=== PATIENT | female | born 1940 | race American Indian/Alaskan Native ===

== ENCOUNTER 2017-09-07 10:08 | Outpatient (CLI) | payer MEDICARE ==
--- NOTE | 2017-09-09 10:04 | Mammography Report ---
BILATERAL MAMMOGRAM with CAD: HISTORY:Cancer screening. Comparison study is dated September 02, 2016. FINDINGS: The breasts are almost entirely fat (<25% glandular). No mass, distortion, suspicious calcification, or skin change is seen. IMPRESSION: Negative mammogram. There is no mammographic evidence of malignancy. RECOMMENDATION: Follow-up per ACS guidelines. BI-RADS CATEGORY: 1 = Negative ACR BI-RADS MAMMOGRAPHIC CODES: 0 = Needs additional imaging evaluation; 1 = Negative; 2 = Benign; 3 = Probably benign; 4 = Suspicious; 5 = Malignant; 6 = Known biopsy-proven malignancy COMMENT: 1. Dense breast tissue, i.e., adenosis, fibrocystic changes, etc., may obscure an underlying neoplasm. 2. Approximately 10% of cancers are not detected with mammography. 3. A negative mammography report should not delay biopsy if a clinically suspicious mass is present. COMMENT: Patient follow-up letters are generated in [employer].
== END 2017-09-07 10:09 | disposition home or self-care (01) ==
LOC: MAMMO 10:08
PROVIDERS: ATTEND Internal Medicine
DX: Z12.31 Encounter for screening mammogram for malignant neoplasm of breast (principal)
CPT/HCPCS: 77067; G0202

== ENCOUNTER 2018-07-11 16:47 | Inpatient (IN) | payer MEDICARE ==
[2018-07-11] MEDS ORDERED: ASPIRIN PO ONE (17:40)
--- NOTE | 2018-07-11 18:08 | Emergency Department Report ---
ED Chest Pain HPI - General Chief Complaint: Chest Pain Stated Complaint: CHEST PAIN Time Seen by Provider: 07/11/18 18:07 Source: patient, EMS Mode of arrival: Stretcher Limitations: No Limitations - History of Present Illness MD Complaint: chest pain -: This afternoon Onset: during rest Pain Location: substernal Pain Radiation: none Severity: moderate Severity scale (0 -10): 6 Quality: heaviness, dull Consistency: constant Improves With: nothing Worsens With: nothing Context: recent illness re: denies: nausea, vomting Other Symptoms: denies: cough, fever Treatments Prior to Arrival: none Aspirin use within the Past 7 Days: (1) Yes - Related Data On Oral Contraceptives: No Home Medications Medication Instructions Recorded Confirmed Last Taken Clopidogrel Bisulfate [Plavix] 75 mg PO DAILY 08/05/13 07/11/18 1 Day Ago ~10/07/16 ALBUTEROL NEB's [Proventil 0.083% 3 inhalation INHALATION PRN 10/31/13 07/11/18 1 Day Ago NEBS] ~10/07/16 Aspirin [Aspirin BABY CHEW TAB] 81 mg PO DAILY 10/31/13 07/11/18 1 Day Ago ~10/07/16 Triamter/Hctz 37.5-25 mg 1 each PO QDAY 10/31/13 07/11/18 1 Day Ago [Maxzide-25] ~10/07/16 Anoro Ellipta 62.5-25 Mcg INH 1 each INHALATION DAILY 03/03/16 07/11/18 03/02/16 Allopurinol [Zyloprim] 300 mg PO QDAY 07/11/18 07/11/18 Unknown ISOSORBIDE MONOnitrate [Imdur ER] 30 mg PO DAILY 07/11/18 07/11/18 Unknown Latanoprost 0.005% 1 drop OU QPM 07/11/18 07/11/18 Unknown Metoprolol Succinate [Toprol Xl] 25 mg PO DAILY 07/11/18 07/11/18 Unknown Pantoprazole [Protonix] 40 mg PO QDAY 07/11/18 07/11/18 Unknown Pravastatin [Pravachol] 40 mg PO DAILY 07/11/18 07/11/18 Unknown glipiZIDE [Glipizide] 5 mg PO BID 07/11/18 07/11/18 Unknown traMADol [Ultram] 50 mg PO Q6HR PRN 07/11/18 07/11/18 Unknown Allergies Allergy/AdvReac Type Severity Reaction Status Date / Time meperidine HCl [From Demerol] Allergy Hives Verified 07/11/18 17:40 flurbiprofen [From Ansaid] AdvReac Unknown Verified 07/11/18 17:40 Kmzynna-Iid-Cna Reductase AdvReac Unknown Verified 07/11/18 17:40 Inhibitor Heart Score - HEART Score History: Highly suspicious EKG: Non-specific Age: > 65 Risk factors: > 3 risk factors or hx of atherosclerotic disease Troponin: 1-3x normal limit HEART Score: 8 - Critical Actions Critical Actions: >7 pts:50-65% risk of adverse cardiac event. Early invasive measures ED Review of Systems ROS: Stated complaint: CHEST PAIN Other details as noted in HPI Comment: All other systems reviewed and negative Constitutional: malaise. denies: chills, fever Eyes: denies: eye pain, eye discharge ENT: denies: ear pain Respiratory: denies: cough, shortness of breath Cardiovascular: chest pain, palpitations, dyspnea on exertion. denies: edema Endocrine: no symptoms reported Gastrointestinal: denies: abdominal pain, nausea, vomiting, diarrhea Genitourinary: denies: urgency, dysuria, frequency Musculoskeletal: denies: back pain, joint swelling Skin: denies: rash, lesions Neurological: denies: headache, weakness, numbness Psychiatric: denies: anxiety, depression Hematological/Lymphatic: denies: easy bleeding, easy bruising ED Past Medical Hx - Past Medical History Previous Medical History?: Yes Hx Hypertension: Yes Hx CVA: Yes (x2) Hx Heart Attack/AMI: Yes Hx Congestive Heart Failure: Yes Hx Diabetes: Yes Hx GERD: Yes Hx Arthritis: Yes Hx Headaches / Migraines: Yes Hx Asthma: Yes Hx COPD: Yes Additional medical history: Headache, high cholesterol - Surgical History Past Surgical History?: Yes Hx Open Heart Surgery: Yes Additional Surgical History: tubal ligation, hysterectomy. - Social History Smoking Status: Former Smoker Substance Use Type: None - Medications Home Medications: Home Medications Medication Instructions Recorded Confirmed Last Taken Type Clopidogrel Bisulfate [Plavix] 75 mg PO DAILY 08/05/13 07/11/18 1 Day Ago History ~10/07/16 ALBUTEROL NEB's [Proventil 0.083% 3 inhalation INHALATION PRN 10/31/13 07/11/18 1 Day Ago History NEBS] ~10/07/16 Aspirin [Aspirin BABY CHEW TAB] 81 mg PO DAILY 10/31/13 07/11/18 1 Day Ago History ~10/07/16 Triamter/Hctz 37.5-25 mg 1 each PO QDAY 10/31/13 07/11/18 1 Day Ago History [Maxzide-25] ~10/07/16 Anoro Ellipta 62.5-25 Mcg INH 1 each INHALATION DAILY 03/03/16 07/11/18 History Allopurinol [Zyloprim] 300 mg PO QDAY 07/11/18 07/11/18 Unknown History ISOSORBIDE MONOnitrate [Imdur ER] 30 mg PO DAILY 07/11/18 07/11/18 Unknown History Latanoprost 0.005% 1 drop OU QPM 07/11/18 07/11/18 Unknown History Metoprolol Succinate [Toprol Xl] 25 mg PO DAILY 07/11/18 07/11/18 Unknown History Pantoprazole [Protonix] 40 mg PO QDAY 07/11/18 07/11/18 Unknown History Pravastatin [Pravachol] 40 mg PO DAILY 07/11/18 07/11/18 Unknown History glipiZIDE [Glipizide] 5 mg PO BID 07/11/18 07/11/18 Unknown History traMADol [Ultram] 50 mg PO Q6HR PRN 07/11/18 07/11/18 Unknown History ED Physical Exam - General Limitations: No Limitations General appearance: alert, in no apparent distress - Head Head exam: Present: atraumatic, normocephalic, normal inspection - Eye Eye exam: Present: normal appearance, PERRL, EOMI Pupils: Present: normal accommodation - ENT ENT exam: Present: normal exam, normal orophraynx, mucous membranes dry - Neck Neck exam: Present: normal inspection, full ROM. Absent: tenderness - Respiratory Respiratory exam: Present: normal lung sounds bilaterally. Absent: respiratory distress, wheezes, rales, rhonchi, stridor - Cardiovascular Cardiovascular Exam: Present: tachycardia, normal heart sounds - GI/Abdominal GI/Abdominal exam: Present: soft, normal bowel sounds. Absent: distended, tenderness, guarding, rebound - Extremities Exam Extremities exam: Present: normal inspection, full ROM, normal capillary refill. Absent: tenderness - Back Exam Back exam: Present: normal inspection, full ROM. Absent: tenderness - Neurological Exam Neurological exam: Present: alert, oriented X3, CN II-XII intact - Psychiatric Psychiatric exam: Present: normal affect, normal mood - Skin Skin exam: Present: warm, dry, intact, normal color. Absent: rash ED Course Vital Signs 07/11/18 07/11/18 07/11/18 17:31 17:33 18:01 Temperature 97.6 F Pulse Rate 147 H 148 H 89 Respiratory 17 18 13 Rate Blood Pressure 142/84 148/102 127/85 Blood Pressure [Left] O2 Sat by Pulse 95 99 91 Oximetry 07/11/18 07/11/18 07/11/18 18:24 18:30 19:01 Temperature Pulse Rate 80 143 H Respiratory 16 16 14 Rate Blood Pressure 111/78 151/85 Blood Pressure [Left] O2 Sat by Pulse 100 97 95 Oximetry 07/11/18 19:15 Temperature 97.7 F Pulse Rate 91 H Respiratory 18 Rate Blood Pressure Blood Pressure 151/85 [Left] O2 Sat by Pulse 100 Oximetry - Reevaluation(s) Reevaluation #1: 07/11/18 20:50 Consulted the station supervisor on-call Dr. Henry He was recently started on heparin drip after given heparin bolus and admission to the hospitalist. Reevaluation #2: 07/11/18 21:30 I discussed patient care with the hospitalist on-call Dr Recinos. We will admit patient to the hospital for further evaluation and management. CHANDLER score - Chandler Score Age > 65: (1) Yes Aspirin use within the Past 7 Days: (1) Yes 3 or more CAD Risk Factors: (1) Yes 2 or more Angina events in past 24 hrs: (0) No Known CAD with more than 50% Stenosis: (1) Yes Elevated Cardiac Markers: (1) Yes ST Deviation Greater than 0.5mm: (0) No CHANDLER Score: 5 ED Medical Decision Making - Lab Data Result diagrams: 07/11/18 18:18 07/11/18 18:18 - EKG Data -: EKG Interpreted by Me Rate: tachycardia (143) - EKG Data When compared to previous EKG there are: previous EKG unavailable Interpretation: nonspecific ST-T wave jeff, LVH 07/11/18 18:20 Atrial Fibrillation with RVR. No STEMI. Critical care attestation.: If time is entered above; I have spent that time in minutes in the direct care of this critically ill patient, excluding procedure time. ED Disposition Clinical Impression: Atrial fibrillation with RVR, NSTEMI (non-ST elevated myocardial infarction) Chest pain Qualifiers: Chest pain type: unspecified Qualified Code(s): R07.9 - Chest pain, unspecified Disposition: 09 OP ADMIT IP TO THIS HOSP Is pt being admited?: Yes Does the pt Need Aspirin: Yes Condition: Stable Instructions: Chest Pain (ED) Referrals: PRIMARY CARE, [Primary Care Provider] - 3-5 Days Time of Disposition: 20:52
[2018-07-11 18:44] LABS: Basophils # (Auto) 0.1 K/mm3 (0.0-0.1); Basophils % (Auto) 0.7 % (0.0-1.8); Eosinophils # (Auto) 0.1 K/mm3 (0.0-0.4); Eosinophils % (Auto) 0.9 % (0.0-4.3); Hemoglobin 13.6 gm/dl (10.1-14.3); Lymphocytes # (Auto) 2.9 K/mm3 (1.2-5.4); Mean Corpuscular HGB Conc 32 % (30-34); Mean Corpuscular Volume 74 fl (79-97); Monocytes # (Auto) 0.7 K/mm3 (0.0-0.8); Monocytes % (Auto) 8.8 % (0.0-7.3); Platelet Count 232 K/mm3 (140-440); Red Blood Count 5.79 M/mm3 (3.65-5.03); Red Cell Distribution Width 17.8 % (13.2-15.2)
[2018-07-11] MEDS ORDERED: NACL 0.9% 1000 ML 1,000 ML IV ONE (18:44)
[2018-07-11 18:45] LABS: Mean Corpuscular Hemoglobin 24 pg (28-32)
[2018-07-11 18:53] LABS: INR 0.87 (0.87-1.13)
[2018-07-11 18:54] LABS: Partial Thromboplastin Time 27.1 Sec. (24.2-36.6)
[2018-07-11 19:15] LABS: BUN/Creatinine Ratio 23; Blood Urea Nitrogen 21 mg/dL (7-17); Calcium 9.5 mg/dL (8.4-10.2); Hemolysis Index 38
[2018-07-11 19:17] LABS: Alanine Aminotransferase 17 units/L (7-56); Albumin 3.8 g/dL (3.9-5)
[2018-07-11 19:20] LABS: Bilirubin,Direct < 0.2 mg/dL (0-0.2)
[2018-07-11 19:47] LABS: Chol/HDL Ratio 2.22 %; HDL Cholesterol 57 mg/dL (40-59); LDL Cholesterol,Direct 53 mg/dL (50-130)
--- NOTE | 2018-07-11 20:36 | XRay Report ---
FINAL REPORT PROCEDURE: XR CHEST 1V AP TECHNIQUE: Chest radiograph anteroposterior view. CPT 90027 HISTORY: chest pain COMPARISON: No prior studies are available for comparison. FINDINGS: Limited study due to patient rotation to the right Heart: Mild cardiomegaly is noted. Mediastinum/Vessels: Sternal sutures and surgical clips are identified consistent with prior CABG. Superior mediastinum appears widened. Lungs/Pleural space: Normal. Bony thorax: No acute osseous abnormality. Life support devices: None. IMPRESSION: No acute pulmonary process Mild cardiomegaly Widening of the superior mediastinum is most likely secondary to tortuous vasculature and patient positioning. Comparison with any prior studies would be of help..
[2018-07-11] MEDS ORDERED: HEPARIN 10,000 UNITS/10 ML IV ONE (20:46)
[2018-07-11] MEDS ORDERED: HEPARIN/ 0.45% NACL-25,000 UNIT/500 ML 25,000 UNIT/500 ML BAG IV SCH (21:00)
[2018-07-11] MEDS ORDERED: ZOFRAN IV PRN (21:58)
[2018-07-11] MEDS ORDERED: NITROSTAT SL PRN (21:58)
[2018-07-11] MEDS ORDERED: MORPHINE IV PRN (21:58)
[2018-07-11] MEDS ORDERED: D50W (25GM) Syringe IV PRN (22:09)
[2018-07-11 22:11] LABS: Hematocrit 42.1 % (30.3-42.9); Hemoglobin 13.2 gm/dl (10.1-14.3)
[2018-07-11 22:14] LABS: INR 0.87 (0.87-1.13)
[2018-07-11 22:15] LABS: Partial Thromboplastin Time 26.8 Sec. (24.2-36.6)
[2018-07-11] MEDS ORDERED: NITRO-BID 2% TP ONE (22:52)
[2018-07-11] MEDS: NITRO-BID 2% TP SCH (22:59)
--- NOTE | 2018-07-11 23:02 | History and Physical Report ---
CHIEF COMPLAINT: Chest pain. HISTORY OF PRESENT ILLNESS: The patient is a 77-year-old female who has been having heaviness and pressure in the retrosternal area of the chest going on for some hours prior to presentation. Pain does not radiate and pain is associated with diaphoresis and headache. There is no history of nausea and vomiting. No history of fever, chills, or cough and no history of shortness of breath and pain was relieved with pain medications and nitroglycerin. PAST MEDICAL HISTORY: Pertinent for coronary artery disease. Also, the patient's past medical history involves hypertension, cerebrovascular accident, congestive heart failure, diabetes mellitus, gastroesophageal reflux disease, arthritis, migraine headache, asthma, COPD, high cholesterol, and headaches. PAST SURGICAL HISTORY: Pertinent for coronary artery bypass graft, hysterectomy, tubal ligation. FAMILY HISTORY: Family history is noncontributory. SOCIAL HISTORY: The patient is a former cigarette smoker, does not smoke anymore and does not drink alcohol or use illicit drugs. MEDICATIONS: The patient is on the following medications: Plavix 75 mg by mouth daily; albuterol nebulizer by inhalation as needed for shortness of breath, frequency unknown; aspirin 81 mg daily; Maxzide 25 one by mouth daily; Anoro Ellipta 62.5/25 mcg by inhalation daily; allopurinol 300 mg by mouth daily; isosorbide mononitrate, Imdur 30 mg by mouth daily; latanoprost 0.005% to both eyes 1 drop every night; metoprolol succinate 25 mg by mouth daily; pantoprazole 40 mg by mouth daily; Pravachol 40 mg by mouth daily; glipizide 5 mg by mouth twice daily; Ultram 50 mg by mouth every 6 hours as needed for pain. ALLERGIES: THE PATIENT IS ALLERGIC TO MEPERIDINE, HYDROCHLORIDE, FLURBIPROFEN, STATIN MEDICATION. REVIEW OF SYSTEMS: CONSTITUTIONAL: There is no fever, no chills. Diaphoresis present. HEENT: Headache present. No sore throat. CARDIOVASCULAR SYSTEM: Chest pain is noted. No orthopnea. RESPIRATORY SYSTEM: There is no shortness of breath or cough. GASTROINTESTINAL SYSTEM: There is no nausea, no vomiting, no abdominal pain, diarrhea, or constipation. NEUROLOGICAL SYSTEM: There is no numbness, no dizziness, no altered mental status. MUSCULOSKELETAL SYSTEM: There is no joint pain or swelling. DERMATOLOGICAL SYSTEM: There is no skin rash or itching. GENITOURINARY SYSTEM: There is no dysuria, hematuria, or flank pain. Rest of system review is normal. PHYSICAL EXAMINATION: GENERAL: At the time of exam, the patient was found to be alert, oriented x 3 and not in acute distress. VITAL SIGNS: As on the time of presentation shows temperature of 97.6 degrees Fahrenheit, pulse of 148, respirations 18, blood pressure 148/102, O2 sat of 99% on room air. HEENT: Shows pupils to be equal, round, reactive to light and accommodating. Extraocular muscles are intact. NECK: Neck is supple with no JVD or carotid bruit. CARDIOVASCULAR: Showed normal first and second heart sounds which are regular with no gallops or murmurs or rubbing. Emergency Room physician reported irregularly irregular rate with elevated pause before. RESPIRATORY: Showed good air entry on both sides of the lungs with no abnormal breath sounds. GASTROINTESTINAL SYSTEM: Show abdomen to be full, soft, nontender with no organomegaly or rigidity. NEUROLOGIC: Shows no focal deficit. MUSCULOSKELETAL: Show no joint swelling or tenderness. DERMATOLOGICAL: Show no skin rash. GENITOURINARY: Showing no costovertebral angle tenderness. PERTINENT LABORATORY AND IMAGING STUDIES: The patient had chest done that shows no active pulmonary process. LABORATORY RESULTS: The patient has CBC done with normal white count, normal hemoglobin, elevated hematocrit of 43, low MCV of 74. Coagulation studies were unremarkable. Chemistry shows elevated BUN of 21 with elevated troponin level of 0.049. Brain natriuretic peptide level was normal. The rest of chemistry shows slight decrease in albumin level of 3.8. DIAGNOSIS: [id number] myocardial infarction. PLAN: The patient will be admitted to telemetry and will have cardiac enzymes checked q. 6 hours x 2 more levels. Also, the patient will remain n.p.o. until seen by the field marketing coordinator and patient will have Cardiology consult with Dr. Henry who was contacted by the Emergency Room physician already. Patient will be on aspirin 325 mg by mouth daily and will continue IV heparin per Cardiology protocol for NSTEMI, started in the Emergency Room. The patient will be on nitro paste 1/2 inch to anterior chest wall q. 6 hours. Will be on p.r.n. nitroglycerin sublingual for breakthrough chest pain. PLAN OF CARE: 1. The patient will be on IV morphine 2 mg every 5 minutes as needed for pain and will be on IV Zofran 4 mg every 6 hours as needed for nausea and vomiting. 2. The patient will be on Tylenol by mouth 650 mg every 4 hours for fever and headache. 3. The patient will be on oxygen by nasal cannula at 2 liter per minute. 4. The patient will remain n.p.o. and will be on her home medication as shown in the medication reconciliation section. 5. The patient will be on Accu-Chek q. 6 hours followed by sliding scale coverage every 6 hours using low-dose sliding scale with coverage using regular insulin. JOB# [id number] OCN/NTS MTDD
[2018-07-12] MEDS: HumuLIN R SUB-Q SCH ×4 (00:59→19:57)
[2018-07-12] MEDS: TYLENOL PO PRN ×2 (06:10→22:50)
[2018-07-12] MEDS: NITRO-BID 2% TP SCH ×4 (06:11→19:58)
[2018-07-12 06:20] LABS: Creatine Kinase MB 16.2 ng/mL (0.0-4.0)
[2018-07-12] MEDS ORDERED: ASPIRIN PO SCH (10:00)
--- NOTE | 2018-07-12 12:47 | Consultation ---
History of Present Illness Consult date: 07/12/18 Consult reason: elevated troponin History of present illness: This is a 77yr old woman known to [employer]. She has a history of coronary artery disease with 3 vessel bypass grafting done 10 years ago. A cardiac catheterization in 2010 and again in 2012 that revealed 3 patent bypass grafts. Ejection fraction 60%. Her latest cardiac evaluation was a persantine thallium stress test late 2015 that reports no ischemia. Co-morbidities includes Hypertension, GERD, COPD, Diabetes and Obesity. Patient presented with chest pain and palpitations, found to be in rapid atrial fibrillation. She has since reverted to a normal sinus rhythm. A repeat ECG shows a sinus rhythm, no acute ischemic changes. Laboratory studies shows cardiac enzymes elevated CKMB of 16.2 with a relative index of 15.8. Troponin 0.269. TSH was not measured. Cardiology consultation requested. Medications and Allergies Allergies Allergy/AdvReac Type Severity Reaction Status Date / Time meperidine HCl [From Demerol] Allergy Hives Verified 07/11/18 17:40 flurbiprofen [From Ansaid] AdvReac Unknown Verified 07/11/18 17:40 Nxdemdc-Ugr-Phg Reductase AdvReac Unknown Verified 07/11/18 17:40 Inhibitor Home Medications Medication Instructions Recorded Confirmed Last Taken Type Clopidogrel Bisulfate [Plavix] 75 mg PO DAILY 08/05/13 07/11/18 1 Day Ago History ~10/07/16 ALBUTEROL NEB's [Proventil 0.083% 3 inhalation INHALATION PRN 10/31/13 07/11/18 1 Day Ago History NEBS] ~10/07/16 Aspirin [Aspirin BABY CHEW TAB] 81 mg PO DAILY 10/31/13 07/11/18 1 Day Ago History ~10/07/16 Triamter/Hctz 37.5-25 mg 1 each PO QDAY 10/31/13 07/11/18 1 Day Ago History [Maxzide-25] ~10/07/16 Anoro Ellipta 62.5-25 Mcg INH 1 each INHALATION DAILY 03/03/16 07/11/18 History Allopurinol [Zyloprim] 300 mg PO QDAY 07/11/18 07/11/18 Unknown History ISOSORBIDE MONOnitrate [Imdur ER] 30 mg PO DAILY 07/11/18 07/11/18 Unknown History Latanoprost 0.005% 1 drop OU QPM 07/11/18 07/11/18 Unknown History Metoprolol Succinate [Toprol Xl] 25 mg PO DAILY 07/11/18 07/11/18 Unknown History Pantoprazole [Protonix] 40 mg PO QDAY 07/11/18 07/11/18 Unknown History Pravastatin [Pravachol] 40 mg PO DAILY 07/11/18 07/11/18 Unknown History glipiZIDE [Glipizide] 5 mg PO BID 07/11/18 07/11/18 Unknown History traMADol [Ultram] 50 mg PO Q6HR PRN 07/11/18 07/11/18 Unknown History Active Meds: Active Medications Acetaminophen (Tylenol) 650 mg PO Q4H PRN PRN Reason: Fever >101 Last Admin: 07/12/18 06:10 Dose: 650 mg Aspirin (Aspirin) 325 mg PO QDAY [facility] Last Admin: 07/12/18 11:56 Dose: 325 mg Dextrose (D50w (25gm) Syringe) 50 ml IV PRN PRN PRN Reason: Hypoglycemia Heparin Sodium/Sodium Chloride (Heparin/ 0.45% Nacl-25,000 Unit/500 Ml) 25,000 unit in 500 mls @ 20 mls/hr IV TITRATE ALFRED; Protocol Last Titration: 07/12/18 06:50 Dose: 900 units/hr, 18 mls/hr Insulin Human Regular (Humulin R) 0 units SUB-Q Q6HR ALFRED; Protocol Last Admin: 07/12/18 06:11 Dose: Not Given Latanoprost (Latanoprost 0.005%) 1 drops OU QHS [facility]FR[facility] Morphine Sulfate (Morphine) 2 mg IV Q5MIN PRN PRN Reason: Chest Pain Nitroglycerin (Nitrostat) 0.4 mg SL .Q5MIN PRN PRN Reason: Chest Pain Nitroglycerin (Nitro-Bid 2%) 0.5 inch TP QIDNTG [facility]; Protocol Last Admin: 07/12/18 11:56 Dose: 0.5 inch Ondansetron HCl (Zofran) 4 mg IV Q6H PRN PRN Reason: Nausea And Vomiting Physical Examination Vital Signs Pulse Resp BP Pulse Ox 147 H 17 142/84 95 07/11/18 17:31 07/11/18 17:31 07/11/18 17:31 08/13/18 17:31 General appearance: no acute distress HEENT: Positive: PERRL Cardiac: Positive: Reg Rate and Rhythm Results 07/11/18 21:33 07/11/18 18:18 Cardiac Enzymes 07/11/18 07/12/18 Range/Units 18:18 04:48 AST 32 (5-40) units/L CK-MB (CK-2) 16.2 H (0.0-4.0) ng/mL Coagulation 07/11/18 07/11/18 Range/Units 18:18 21:33 PT 12.2 12.3 (12.2-14.9) Sec. INR 0.87 0.87 (0.87-1.13) APTT 27.1 26.8 (24.2-36.6) Sec. Lipids 07/11/18 Range/Units 18:18 Triglycerides 182 H (2-149) mg/dL Cholesterol 127 (50-199) mg/dL HDL Cholesterol 57 (40-59) mg/dL Cholesterol/HDL Ratio 2.22 % CBC 07/11/18 07/11/18 Range/Units 18:18 21:33 WBC 7.7 (4.5-11.0) K/mm3 RBC 5.79 H (3.65-5.03) M/mm3 Hgb 13.6 13.2 (10.1-14.3) gm/dl Hct 43.0 H 42.1 (30.3-42.9) % Plt Count 232 231 (140-440) K/mm3 Lymph # 2.9 (1.2-5.4) K/mm3 [place] # 0.7 (0.0-0.8) K/mm3 Eos # 0.1 (0.0-0.4) K/mm3 Baso # 0.1 (0.0-0.1) K/mm3 Comprehensive Metabolic Panel 07/11/18 07/11/18 Range/Units 18:18 18:18 Sodium 138 (137-145) mmol/L Potassium 3.8 (3.6-5.0) mmol/L Chloride 98.5 (98-107) mmol/L Carbon Dioxide 23 (22-30) mmol/L BUN 21 H (7-17) mg/dL Creatinine 0.9 (0.7-1.2) mg/dL Glucose 100 (65-100) mg/dL Calcium 9.5 (8.4-10.2) mg/dL Direct Bilirubin < 0.2 (0-0.2) mg/dL AST 32 (5-40) units/L ALT 17 (7-56) units/L Alkaline Phosphatase 33 L (35-129) units/L Total Protein 7.1 (6.3-8.2) g/dL Albumin 3.8 L (3.9-5) g/dL Assessment and Plan Atrial fibrillation, new onset currently is sinus rhythm Hx of CAD with 3 vessel CABG Hypertension GERD Diabetes COPD Elevated troponin
[2018-07-12] MEDS: ELIQUIS PO SCH ×2 (16:09→22:47)
[2018-07-12] MEDS: CORDARONE PO SCH ×2 (16:09→22:47)
[2018-07-12] MEDS: LOPRESSOR PO SCH ×2 (16:09→22:47)
--- NOTE | 2018-07-12 16:52 | Progress Note ---
Assessment and Plan Assessment and plan: 77 year old -Togolese female with past medical history significant for CAD status post CABG, CVA, dementia presented to the emergency department with complaints of chest pain. In the emergency department she was in A. fib with RVR which spontaneously reverted to sinus rhythm In the ED patient had elevated troponin level management was started for NSTEMI - Cardiology is consulted and recommended to start her on beta abdirashid, amiodarone and Eliquis Diabetes mellitus type 2 - On a sliding scale insulin, Accu-Chek, ADA diet History of CAD status post CABG History of CVA Morbid obesity - Patient is consulted about exercise, diet, and weight loss Patient has dementia and lives by herself; she refused placement on her previous admission. Currently she is not willing to go to subacute rehabilitation. Disposition - Continue inpatient care History Interval history: Patient was seen and evaluated this morning, patient didn't have any chest pain. Patient asked to go home. Hospitalist Physical - Physical exam Narrative exam: Not in cardiopulmonary distress. The patient is morbidly obese. Vital signs as documented. Head exam is unremarkable. No scleral icterus . Neck is without jugular venous distension, thyromegaly, or carotid bruits. Lungs are clear to auscultation. Cardiac exam reveals regular rate and Rhythm. Abdominal exam reveals normal bowel sounds, no masses, no organomegaly and no aortic enlargement. Extremities are nonedematous and both femoral and pedal pulses are normal. BACTERIOLOGY RESEARCH ASSISTANT: Alert and oriented 3. No focal weakness. - Constitutional Vitals: Temp Pulse Resp BP Pulse Ox 98.6 F 61 22 148/76 97 07/12/18 08:03 07/12/18 08:03 07/12/18 08:03 07/12/18 08:03 07/12/18 09:59 General appearance: Present: no acute distress Results - Labs CBC & Chem 7: 07/11/18 21:33 07/11/18 18:18 Labs: Laboratory Last Values WBC 7.7 K/mm3 (4.5-11.0) 07/11/18 18:18 RBC 5.79 M/mm3 (3.65-5.03) H 07/11/18 18:18 Hgb 13.2 gm/dl (10.1-14.3) 07/11/18 21:33 Hct 42.1 % (30.3-42.9) 07/11/18 21:33 MCV 74 fl (79-97) L 07/11/18 18:18 MCH 24 pg (28-32) L 07/11/18 18:18 MCHC 32 % (30-34) 07/11/18 18:18 RDW 17.8 % (13.2-15.2) H 07/11/18 18:18 Plt Count 231 K/mm3 (140-440) 07/11/18 21:33 Lymph % (Auto) 38.0 % (13.4-35.0) H 07/11/18 18:18 [place] % (Auto) 8.8 % (0.0-7.3) H 07/11/18 18:18 Eos % (Auto) 0.9 % (0.0-4.3) 07/11/18 18:18 Baso % (Auto) 0.7 % (0.0-1.8) 07/11/18 18:18 Lymph # 2.9 K/mm3 (1.2-5.4) 07/11/18 18:18 [place] # 0.7 K/mm3 (0.0-0.8) 07/11/18 18:18 Eos # 0.1 K/mm3 (0.0-0.4) 07/11/18 18:18 Baso # 0.1 K/mm3 (0.0-0.1) 07/11/18 18:18 Seg Neutrophils % 51.6 % (40.0-70.0) 07/11/18 18:18 Seg Neutrophils # 3.9 K/mm3 (1.8-7.7) 07/11/18 18:18 PT 12.3 Sec. (12.2-14.9) 07/11/18 21:33 INR 0.87 (0.87-1.13) 07/11/18 21:33 APTT 26.8 Sec. (24.2-36.6) 07/11/18 21:33 D-Dimer 175.54 ng/mlDDU (0-234) 07/11/18 18:18 Heparin Anti-Xa Level 0.57 U.I./ml (0.3-0.7) 07/12/18 15:28 Sodium 138 mmol/L (137-145) 08/13/18 18:18 Potassium 3.8 mmol/L (3.6-5.0) 07/11/18 18:18 Chloride 98.5 mmol/L (98-107) 07/11/18 18:18 Carbon Dioxide 23 mmol/L (22-30) 07/11/18 18:18 Anion Gap 20 mmol/L 07/11/18 18:18 BUN 21 mg/dL (7-17) H 07/11/18 18:18 Creatinine 0.9 mg/dL (0.7-1.2) 07/11/18 18:18 Estimated GFR > 60 ml/min 07/11/18 18:18 BUN/Creatinine Ratio 23 % 07/11/18 18:18 Glucose 100 mg/dL (65-100) 07/11/18 18:18 POC Glucose 97 (70-105) 07/12/18 11:45 Calcium 9.5 mg/dL (8.4-10.2) 07/11/18 18:18 Magnesium 2.00 mg/dL (1.7-2.3) 07/11/18 18:28 Total Bilirubin 0.20 mg/dL (0.1-1.2) 07/11/18 18:18 Direct Bilirubin < 0.2 mg/dL (0-0.2) 07/11/18 18:18 AST 32 units/L (5-40) 07/11/18 18:18 ALT 17 units/L (7-56) 07/11/18 18:18 Alkaline Phosphatase 33 units/L (35-129) L 07/11/18 18:18 Total Creatine Kinase 102 units/L (30-135) 07/12/18 04:48 CK-MB (CK-2) 16.2 ng/mL (0.0-4.0) H 07/12/18 04:48 CK-MB (CK-2) Rel Index 15.8 (0-4) H 07/12/18 04:48 Troponin T 0.269 ng/mL (0.00-0.029) H* D 07/12/18 04:48 NT-Pro-B Natriuret Pep 730.5 pg/mL (0-900) 07/11/18 18:28 Total Protein 7.1 g/dL (6.3-8.2) 07/11/18 18:18 Albumin 3.8 g/dL (3.9-5) L 07/11/18 18:18 Albumin/Globulin Ratio 1.2 % 07/11/18 18:18 Triglycerides 182 mg/dL (2-149) H 07/11/18 18:18 Cholesterol 127 mg/dL (50-199) 07/11/18 18:18 LDL Cholesterol Direct 53 mg/dL (50-130) 07/11/18 18:18 HDL Cholesterol 57 mg/dL (40-59) 07/11/18 18:18 Cholesterol/HDL Ratio 2.22 % 07/11/18 18:18 TSH 1.530 mlU/mL (0.270-4.200) 07/12/18 13:44
[2018-07-12] MEDS ORDERED: LATANOPROST 0.005% OU SCH (22:00)
[2018-07-13] MEDS: LOPRESSOR PO SCH (04:59)
[2018-07-13] MEDS: NITRO-BID 2% TP SCH ×2 (05:55→10:45)
[2018-07-13] MEDS ORDERED: LOPRESSOR PO SCH ×2 (06:00→11:00)
[2018-07-13] MEDS ORDERED: PROVENTIL IH SCH (06:05)
[2018-07-13] MEDS: HumuLIN R SUB-Q SCH ×2 (06:08)
[2018-07-13 06:12] LABS: Hematocrit 42.9 % (30.3-42.9); Hemoglobin 13.2 gm/dl (10.1-14.3)
[2018-07-13] MEDS ORDERED: PROVENTIL IH ONE (06:12)
[2018-07-13 06:36] LABS: BUN/Creatinine Ratio 20; Blood Urea Nitrogen 18 mg/dL (7-17); Calcium 9.2 mg/dL (8.4-10.2); Hemolysis Index 13
[2018-07-13 09:33] VITALS: BP 136/75
[2018-07-13] MEDS: DUONEB *Not for PRN Use IH SCH ×2 (09:33→13:20)
--- NOTE | 2018-07-13 10:01 | Progress Note ---
Assessment and Plan New onset Atrial fibrillation, paroxysmal currently is sinus rhythm; on amiodarone and metoprolol for suppression normal TSH initiated on eliquis for oral anticoagulation Hx of CAD with 3 vessel CABG Hypertension GERD Diabetes COPD Elevated troponin Recommendations: Continue beta blockers and amiodarone for atrial fibrillation suppression. Oral anticoagulation with Eliquis therapy and low dose aspirin. Stable cardiac romero for discharge. Patient will f/u with [facility] as scheduled at 1050a.. Subjective Date of service: 07/13/18 Interval history: Patient reports she is feeling better. She denies chest pain, shortness of breath and palpitations. Stable sinus rhythm on telemetry. Objective Vital Signs Temp Pulse Pulse Resp Resp BP Pulse Ox 07/13/18 09:40 82 16 07/13/18 09:35 99 07/13/18 09:30 82 16 07/13/18 08:15 97.3 F L 63 20 136/75 98 07/13/18 06:34 55 L 20 07/13/18 06:15 58 L 20 07/13/18 05:55 58 L 07/13/18 04:21 97.0 F L 51 L 17 96/53 98 07/12/18 23:58 98.2 F 55 L 17 123/47 99 07/12/18 21:10 99 07/12/18 19:40 63 07/12/18 19:31 98.3 F 51 L 17 145/63 98 07/12/18 19:29 64 98 07/12/18 16:47 98.3 F 60 20 149/94 99 07/12/18 12:34 97.9 F 62 20 151/74 99 07/12/18 09:59 97 - Physical Examination General: No Apparent Distress HEENT: Positive: PERRL Cardiac: Positive: Reg Rate and Rhythm Neuro: Positive: Grossly Intact Extremities: Absent: edema - Labs and Meds CBC 07/13/18 Range/Units 05:20 Hgb 13.2 (10.1-14.3) gm/dl Hct 42.9 (30.3-42.9) % Plt Count 215 (140-440) K/mm3 Comprehensive Metabolic Panel 07/13/18 Range/Units 05:20 Sodium 141 (137-145) mmol/L Potassium 4.1 (3.6-5.0) mmol/L Chloride 99.0 (98-107) mmol/L Carbon Dioxide 30 D (22-30) mmol/L BUN 18 H (7-17) mg/dL Creatinine 0.9 (0.7-1.2) mg/dL Glucose 118 H (65-100) mg/dL Calcium 9.2 (8.4-10.2) mg/dL
[2018-07-13] MEDS: ELIQUIS PO SCH (10:42)
[2018-07-13] MEDS: TYLENOL PO PRN (10:50)
[2018-07-13] MEDS ORDERED: CORDARONE PO SCH (11:00)
[2018-07-13] MEDS ORDERED: HALFPRIN EC PO SCH (11:00)
--- NOTE | 2018-07-13 11:01 | Discharge Summary ---
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 In the emergency department patient was in A. fib with RVR which spontaneously reverted to sinus rhythm In the ED patient had elevated troponin level management was started for NSTEMI - Cardiology was consulted and recommended to start her on beta abdirashid, amiodarone and Eliquis Diabetes mellitus type 2 - On a sliding scale insulin, Accu-Chek, ADA diet History of CAD status post CABG History of CVA Morbid obesity - Patient is consulted about exercise, diet, and weight loss Patient has dementia and lives by herself; she refused placement on her previous admission. Currently she is not willing to go to subacute rehabilitation. Patient didn't have any chest pain and was hemodynamically stable. Patient cleared by cardiology for discharge. Disposition: DC/TX-06 HOME UNDER HOME [facility] Time spent for discharge: 34 minutes - Discharge Diagnoses (1) Atrial fibrillation with RVR Status: Acute (2) Chest pain Status: Acute Qualifiers: Chest pain type: unspecified Qualified Code(s): R07.9 - Chest pain, unspecified (3) NSTEMI (non-ST elevated myocardial infarction) Status: Acute (4) CAD (coronary artery disease) Status: Chronic Qualifiers: Coronary Disease-Associated Artery/Lesion type: council artery (5) Diabetes Status: Chronic (6) Hypertension Status: Chronic (7) Morbid obesity Status: Chronic Core Measure Documentation - Palliative Care Palliative Care/ Comfort Measures: Not Applicable - Core Measures Any of the following diagnoses?: acute IA - Acute IA Discharge Requirements Aspirin at discharge: Yes BLAYNE/ARB for LVSD if EF <40%: Yes Beta abdirashid at discharge: Yes Statin for LDL = or >100 mg/dl on DC: Yes Reason for no statin on DC: Allergy or sensitivity Exam - Physical Exam Narrative exam: Not in cardiopulmonary distress. The patient is morbidly obese. Vital signs as documented. Head exam is unremarkable. No scleral icterus . Neck is without jugular venous distension, thyromegaly, or carotid bruits. Lungs are clear to auscultation. Cardiac exam reveals regular rate and Rhythm. Abdominal exam reveals normal bowel sounds, no masses, no organomegaly and no aortic enlargement. Extremities are nonedematous and both femoral and pedal pulses are normal. SECURITY TEAM LEAD: Alert and oriented 3. No focal weakness. - Constitutional Vitals: Temp Pulse Resp BP Pulse Ox 97.3 F L 82 16 136/75 99 07/13/18 08:15 07/13/18 09:40 07/13/18 09:40 07/13/18 08:15 07/13/18 09:35 Plan Diet: low cholesterol, low salt Follow up with: PRIMARY CARE, [Primary Care Provider] - 3-5 Days DAVID MALONE JR, MD [Staff Physician] - 7 Days SHANA DUPONT MD [Staff Physician] - 10 Days Prescriptions: Amiodarone [Cordarone 200 MG TAB] 200 mg PO BID #60 tablet Apixaban [Eliquis] 5 mg PO Q12HR #30 tablet Lisinopril [Zestril TAB] 5 mg PO QDAY #30 tablet Metoprolol [Lopressor TAB] 50 mg PO Q12H #60 tablet
== END 2018-07-13 15:30 | disposition home health service (06) | DRG 281 ==
LOC: ED 16:47 → 4A 21:52
PROVIDERS: ADMIT Internal Medicine; ATTEND Internal Medicine
DX: I21.4 Non-ST elevation (NSTEMI) myocardial infarction (principal); Z68.41 Body mass index [BMI] 40.0-44.9, adult; I25.10 Atherosclerotic heart disease of native coronary artery without angina pectoris; E11.9 Type 2 diabetes mellitus without complications; I48.0 Paroxysmal atrial fibrillation; K21.9 Gastro-esophageal reflux disease without esophagitis; J44.9 Chronic obstructive pulmonary disease, unspecified; F03.90 Unspecified dementia, unspecified severity, without behavioral disturbance, psychotic disturbance, mood disturbance, and anxiety; I11.0 Hypertensive heart disease with heart failure; I50.9 Heart failure, unspecified; M19.90 Unspecified osteoarthritis, unspecified site; G43.909 Migraine, unspecified, not intractable, without status migrainosus; E66.01 Morbid (severe) obesity due to excess calories; Z71.3 Dietary counseling and surveillance; Z95.1 Presence of aortocoronary bypass graft; Z86.73 Personal history of transient ischemic attack (TIA), and cerebral infarction without residual deficits; Z88.5 Allergy status to narcotic agent; Z79.899 Other long term (current) drug therapy; I25.2 Old myocardial infarction; Z90.710 Acquired absence of both cervix and uterus; Z98.51 Tubal ligation status; Z87.891 Personal history of nicotine dependence
CPT/HCPCS: 36415; 71045; 80048; 80061; 80074; 82550; 82553; 82962; 83735; 83880; 84443; 84484; 85014; 85018; 85025; 85049; 85379; 85520; 85610; 85730; 93005; 93010; 94640; 94760; 96374; J1644; J7030

== ENCOUNTER 2018-09-20 11:06 | Outpatient (CLI) | payer MEDICARE ==
--- NOTE | 2018-09-20 15:39 | Mammography Report ---
BILATERAL DIGITAL SCREENING MAMMOGRAM with CAD: 09/20/18 11:06:00 CLINICAL: Routine screening. COMPARISON:09/07/17 FINDINGS: The breasts are almost entirely fatty. No mass, architectural distortion or suspicious calcifications. IMPRESSION: No mammographic evidence of malignancy. BI-RADS CATEGORY: 1 - - Negative RECOMMENDATION: Routine mammographic screening in one year. COMMENT: Patient follow-up letters are generated by our [employer] application.
== END 2018-09-20 11:07 | disposition home or self-care (01) ==
LOC: MAMMO 11:06
PROVIDERS: ATTEND Internal Medicine
DX: Z12.31 Encounter for screening mammogram for malignant neoplasm of breast (principal); I10 Essential (primary) hypertension; E11.9 Type 2 diabetes mellitus without complications; J45.909 Unspecified asthma, uncomplicated; I25.10 Atherosclerotic heart disease of native coronary artery without angina pectoris; E78.5 Hyperlipidemia, unspecified; E66.01 Morbid (severe) obesity due to excess calories; I48.91 Unspecified atrial fibrillation
CPT/HCPCS: 77067

== ENCOUNTER 2019-06-28 07:47 | Inpatient (IN) | payer MEDICARE ==
--- NOTE | 2019-06-28 08:13 | Emergency Department Report ---
ED General Adult HPI - General Chief complaint: Headache Stated complaint: HEADACHE Time Seen by Provider: 06/28/19 08:03 Source: patient, family, EMS (ems notes not available at time of chart dictation), RN notes reviewed, old records reviewed Mode of arrival: Stretcher Limitations: No Limitations - History of Present Illness Initial comments: Primary care Dr.: Dr. Rico Cardiology: Dr. Cano Past medical history: Obesity, atrial fibrillation, presumed paroxysmal, currently on systemic anticoagulation; eliquis. Patient reports taking liquids last night and this morning. Also has a history of COPD, chronic respiratory failure, on home oxygen, heart disease status post bypass, diabetes, obesity stroke, chronic musculoskeletal pain Patient reports having had an epidural procedure in her lumbar spine region yesterday for chronic lower back pain. Prior to this procedure, she reports having held her systemic anticoagulation for either 3 or 4 days. She is not quite certain. She reports feeling like in her usual state of health yesterday. Then, at approximately 2:00 in the morning, she developed a throbbing intense headache, frontal and bitemporal. The headache is not sudden or thunderclap in nature. She reports the headache is not positional. She reports the headache is gradually getting worse. The headache is associated with nausea. There is no jaw claudication. There is no loss or change of vision. Patient endorsed ce ntral chest pain, lasting for a few seconds, now resolved. The pain did not radiate to the back, arms and neck. She also endorses left lower quadrant pressure, pain/discomfort. She denies urinary symptoms. She endorses nausea, no current vomiting. The headache is constant, worsening, does not radiate anywhere. -: Gradual, hour(s) Location: head, chest Radiation: non-radiation Severity scale (0 -10): 10 Quality: aching, other Consistency: constant Improves with: none Worsens with: none Associated Symptoms: chest pain, malaise, nausea/vomiting, shortness of breath, weakness - Related Data Home Medications Medication Instructions Recorded Confirmed Last Taken Pravastatin [Pravachol] 40 mg PO DAILY 06/30/18 06/28/19 06/28/19 Umeclidinium Brm/Vilanterol Tr 1 each IH DAILY 06/30/18 06/28/19 06/28/19 [Anoro Ellipta 62.5-25 Mcg INH] traMADol [Ultram 50 MG tab] 50 mg PO Q6HR PRN 06/30/18 06/28/19 06/27/19 Allopurinol [Zyloprim] 300 mg PO QDAY 07/11/18 06/28/19 12/17/18 10:30 ISOSORBIDE MONOnitrate [Imdur ER] 30 mg PO DAILY 07/11/18 06/28/19 12/17/18 10:30 30 Latanoprost 0.005% 1 drop OU QPM 07/11/18 06/28/19 12/17/18 10:30 Pantoprazole [Protonix TAB] 40 mg PO QDAY 07/11/18 06/28/19 12/17/18 10:30 glipiZIDE [Glipizide] 5 mg PO QAM 07/11/18 06/28/19 12/17/18 10:30 Nitroglycerin [Nitrostat] 0.4 mg SL Q5M PRN 12/18/18 06/28/19 Unknown Furosemide [Lasix] 20 mg PO QDAY 06/28/19 06/28/19 Unknown Metoprolol Xl [Metoprolol 25 mg PO QDAY 06/28/19 06/28/19 Unknown SUCCINATE ER TAB] glipiZIDE [Glucotrol] 5 mg PO QPM PRN 06/28/19 06/28/19 Unknown Previous Rx's Medication Instructions Recorded Last Taken Type Apixaban [Eliquis] 5 mg PO Q12HR #30 tablet 07/13/18 06/28/19 Rx Lisinopril [Zestril TAB] 5 mg PO QDAY #30 tablet 07/13/18 12/17/18 10:30 Rx Allergies Allergy/AdvReac Type Severity Reaction Status Date / Time meperidine [From Demerol] Allergy Itching Verified 06/30/18 16:56 meperidine HCl [From Demerol] Allergy Hives Verified 07/11/18 17:40 mushroom Allergy Rash Verified 12/23/18 16:06 spinach Allergy Itching Verified 06/30/18 16:57 flurbiprofen [From Ansaid] AdvReac Unknown Verified 07/11/18 17:40 Zazbuvl-Rlo-Lqe Reductase AdvReac Unknown Verified 07/11/18 17:40 Inhibitor ED Review of Systems ROS: Stated complaint: HEADACHE Other details as noted in HPI Constitutional: malaise Eyes: denies: eye discharge, vision change ENT: denies: throat pain Respiratory: shortness of breath (chronic). denies: cough Cardiovascular: chest pain Gastrointestinal: abdominal pain, nausea, vomiting Genitourinary: denies: dysuria Musculoskeletal: back pain, arthralgia, myalgia Skin: denies: lesions Neurological: headache, weakness Psychiatric: anxiety ED Past Medical Hx - Past Medical History Hx Hypertension: Yes Hx CVA: Yes (x2) Hx Heart Attack/AMI: Yes Hx Congestive Heart Failure: Yes Hx Diabetes: Yes Hx GERD: Yes Hx Arthritis: Yes Hx Headaches / Migraines: Yes Hx Asthma: Yes Hx COPD: Yes Additional medical history: Headache, high cholesterol - Surgical History Hx Open Heart Surgery: Yes Additional Surgical History: tubal ligation, hysterectomy. - Social History Smoking Status: Unknown if ever smoked - Medications Home Medications: Home Medications Medication Instructions Recorded Confirmed Last Taken Type Pravastatin [Pravachol] 40 mg PO DAILY 06/30/18 06/28/19 06/28/19 History Umeclidinium Brm/Vilanterol Tr 1 each IH DAILY 06/30/18 06/28/19 06/28/19 History [Anoro Ellipta 62.5-25 Mcg INH] traMADol [Ultram 50 MG tab] 50 mg PO Q6HR PRN 06/30/18 06/28/19 06/27/19 History Allopurinol [Zyloprim] 300 mg PO QDAY 07/11/18 06/28/19 12/17/18 10:30 History ISOSORBIDE MONOnitrate [Imdur ER] 30 mg PO DAILY 07/11/18 06/28/19 12/17/18 10:30 History 30 Latanoprost 0.005% 1 drop OU QPM 07/11/18 06/28/19 12/17/18 10:30 History Pantoprazole [Protonix TAB] 40 mg PO QDAY 07/11/18 06/28/19 12/17/18 10:30 History glipiZIDE [Glipizide] 5 mg PO QAM 07/11/18 06/28/19 12/17/18 10:30 History Apixaban [Eliquis] 5 mg PO Q12HR #30 tablet 07/13/18 06/28/19 06/28/19 Rx Lisinopril [Zestril TAB] 5 mg PO QDAY #30 tablet 07/13/18 06/28/19 12/17/18 10:30 Rx Nitroglycerin [Nitrostat] 0.4 mg SL Q5M PRN 12/18/18 06/28/19 Unknown History Furosemide [Lasix] 20 mg PO QDAY 06/28/19 06/28/19 Unknown History Metoprolol Xl [Metoprolol 25 mg PO QDAY 06/28/19 06/28/19 Unknown History SUCCINATE ER TAB] glipiZIDE [Glucotrol] 5 mg PO QPM PRN 06/28/19 06/28/19 Unknown History ED Physical Exam - General Limitations: No Limitations General appearance: alert, anxious, in distress, obese - Head Head exam: Present: atraumatic, normocephalic - Eye Eye exam: Present: normal appearance, PERRL, EOMI, other (visual acuity intact to finger counting, color perception, reading at a close distance). Absent: n ystagmus - ENT ENT exam: Present: normal exam, normal orophraynx, mucous membranes moist, normal external ear exam - Neck Neck exam: Present: normal inspection, full ROM. Absent: tenderness, meningismus - Respiratory Respiratory exam: Present: normal lung sounds bilaterally. Absent: respiratory distress - Cardiovascular Cardiovascular Exam: Present: regular rate, normal rhythm, normal heart sounds. Absent: bradycardia, tachycardia, irregular rhythm, systolic murmur, diastolic murmur, rubs, gallop - GI/Abdominal GI/Abdominal exam: Present: soft. Absent: distended, tenderness, guarding, rebound, rigid, pulsatile mass - Extremities Exam Extremities exam: Present: normal inspection, full ROM, pedal edema, other (2+ pulses noted in the bilateral upper, lower extremities. Compartments soft. No long bony tenderness. The pelvis is stable.). Absent: calf tenderness - Back Exam Back exam: Present: normal inspection, full ROM. Absent: tenderness, CVA tenderness (R), CVA tenderness (L), paraspinal tenderness, vertebral tenderness - Neurological Exam Neurological exam: Present: alert, oriented X3, other (Extraocular movements intact. Tongue midline. No facial droop. Facial sensation intact to light touch in the V1, V2, V3 distribution bilaterally. 5 and 5 strength in 4 extremities.. Sensation is intact to light touch in 4 extremities.). Absent: motor sensory deficit - Psychiatric Psychiatric exam: Present: anxious - Skin Skin exam: Present: warm, dry, intact, normal color. Absent: rash ED Course Vital Signs 06/28/19 06/28/19 06/28/19 08:00 08:06 08:07 Temperature 98.0 F Pulse Rate 70 Respiratory 18 18 Rate Blood Pressure Blood Pressure 199/76 [Right] O2 Sat by Pulse 100 100 100 Oximetry 06/28/19 06/28/19 06/28/19 08:16 09:20 10:00 Temperature Pulse Rate 68 73 78 Respiratory 23 20 22 Rate Blood Pressure 199/76 161/70 173/77 Blood Pressure [Right] O2 Sat by Pulse 100 95 97 Oximetry 06/28/19 10:30 Temperature Pulse Rate 83 Respiratory 20 Rate Blood Pressure 161/70 Blood Pressure [Right] O2 Sat by Pulse 99 Oximetry - Reevaluation(s) Reevaluation #1: 06/28/19 09:15 Differential diagnosis, including not limited to: Post dural headache, migraine headache, tension headache, cluster headache, intracranial hemorrhage costochondritis, GERD, gastritis, hiatal hernia, pneumonia, acute coronary syndrome, intra-abdominal bleed, intra-abdominal infection, chronic hernia, retroperitoneal hematoma Assessment and plan 78-year-old Female, Currently Taking Systemic Anticoagulation, Took a Dose Last Night, Took a Dose Today, Now with Worsening Headache after Epidural Procedure. Suspect Post Dural Headache. We Will Treat Her Pain Supportively and Symptomatically. CT Scan of the Brain Will Be Obtained. The Patient Does Not Describe the Headache As Sudden or Thunderclap in Nature. The patient does state that the headache is one of the more intense headaches of her life, she may have had a strong one a few years ago, but she is not certain. To her best recollection, she hasn't had a posterior headache. CT scan of the brain is pending. We will obtain neurology consultation in order to guide management for presumed post dural headache. Chest pain is reviewed and appreciated. Her EKG is reviewed and appreciated. It appears to be unchanged from prior. The chest pain has resolved. The patient reports no DVT or pulmonary embolus risk factors. Screening laboratory studies pending. Given his advanced age, and endorsement of lower abdominal discomfort, we will obtain CT scan of the abdomen and pelvis. We will reassess after her data points and resulted. There is no loss of vision, the pupils appear to be within normal limits, and she does not have any temporal tenderness or jaw claudication. Therefore, I do not clinically favor temporal arteritis. Reevaluation #2: 06/28/19 09:46 Discussed with neurologist, Dr. Rodrigues, who recommended MRI brain with and without contrast. Also is in agreement with supportive care. We both agree that this is very unlikely to be a subarachnoid hemorrhage, and no additional invasive workup is recommended for this particular entity. The Hospital physician will be paged to arrange admission. As per this institutions protocols/polic, we typically defer ordering of MR brain to the inpatient team. 06/28/19 10:09 CT brain, CT abdomen and pelvis negative for acute disease. The Hospital physi vin, Dr Db Guerra to admit patient ED Medical Decision Making - Lab Data Result diagrams: 06/28/19 08:24 06/28/19 08:24 Vital Signs 06/28/19 06/28/19 08:06 08:07 Temperature 98.0 F Pulse Rate 70 Respiratory 18 18 Rate Blood Pressure 199/76 [Right] O2 Sat by Pulse 100 100 Oximetry Lab Results 06/28/19 06/28/19 Range/Units 08:24 08:32 WBC 9.1 (4.5-11.0) K/mm3 RBC 5.16 H (3.65-5.03) M/mm3 Hgb 12.5 (10.1-14.3) gm/dl Hct 40.7 (30.3-42.9) % MCV 79 (79-97) fl MCH 24 L (28-32) pg MCHC 31 (30-34) % RDW 16.9 H (13.2-15.2) % Plt Count 216 (140-440) K/mm3 Lymph % (Auto) 25.7 (13.4-35.0) % Terry % (Auto) 8.2 H (0.0-7.3) % Eos % (Auto) 0.1 (0.0-4.3) % Baso % (Auto) 0.2 (0.0-1.8) % Lymph # 2.3 (1.2-5.4) K/mm3 Terry # 0.7 (0.0-0.8) K/mm3 Eos # 0.0 (0.0-0.4) K/mm3 Baso # 0.0 (0.0-0.1) K/mm3 Seg Neutrophils % 65.8 (40.0-70.0) % Seg Neutrophils # 6.0 (1.8-7.7) K/mm3 POC Glucose 128 H (70-105) - EKG Data -: EKG Interpreted by Md EKG shows normal: sinus rhythm Rate: normal - EKG Data 06/28/19 09:19 This is a sinus rhythm, 70 bpm, normal axis, QTC prolonged, left ventricular hypertrophy, T-wave inversion V2, V3, V4 and V5, EKG is abnormal, the EKG is unchanged from prior EKG from November 2018, the EKG is not consistent with ST elevation myocardial infarction. - Radiology Data Radiology results: pending, report reviewed, image reviewed Print Report Referring Physician: MIMI ACOSTA Patient Name: CARMENZA SEVERINO Date of : 1940 Sex: Female Report Date: 2019-06-28 Report Status: Finalized Findings [facility] [address] [place] [address] XRay Report Signed Patient: CARMENZA SEVERINO MR#: [id number] : 1940 Acct:[id number] Age/Sex: 78 / F ADM Date: 06/28/19 Loc: ED Attending Dr: Ordering Physician: MIMI ACOSTA MD Date of Service: 06/28/19 Procedure(s): XR chest 1V ap Accession Number(s): [id number] cc: MIMI ACOSTA MD Fluoro T lashonda In Minutes: CHEST 1 VIEW INDICATION: Chest pain, nausea and vomiting, severe headache. COMPARISON: FINDINGS: Support devices: None. Heart: Previous CABG changes are noted. Mild cardiomegaly is evident. The aorta is mildly ectatic but well defined. Lungs/Pleura: Mild central pulmonary venous congestion is identified. No evidence for infiltrate, pleural effusion or pneumothorax. Additional findings: None. IMPRESSION: Mild cardiomegaly and central pulmonary venous congestion. No CHF. Signer Name: Alvarado Polo Jr, MD Signed: 06/28/2019 8:58 AM Workstation Name: [id number] Transcribed By: TTR Dictated By: ALVARADO POLO JR, MD Electronically Authenticated By: ALVARADO POLO JR, MD Signed Date/Time: 06/28/19 0858 Critical care attestation.: If time is entered above; I have spent that time in minutes in the direct care of this critically ill patient, excluding procedure time. ED Disposition Clinical Impression: Headache, Chest pain Disposition: DC-09 OP ADMIT IP TO THIS HOSP Is pt being admited?: Yes Condition: Fair
[2019-06-28 08:46] LABS: Basophils % (Auto) 0.2 % (0.0-1.8); Eosinophils % (Auto) 0.1 % (0.0-4.3); Lymphocytes # (Auto) 2.3 K/mm3 (1.2-5.4); Lymphocytes % (Auto) 25.7 % (13.4-35.0); Mean Corpuscular HGB Conc 31 % (30-34); Mean Corpuscular Volume 79 fl (79-97); Monocytes # (Auto) 0.7 K/mm3 (0.0-0.8); Monocytes % (Auto) 8.2 % (0.0-7.3); Platelet Count 216 K/mm3 (140-440); Red Blood Count 5.16 M/mm3 (3.65-5.03); Red Cell Distribution Width 16.9 % (13.2-15.2)
[2019-06-28] MEDS ORDERED: NACL 0.9% 500 ML 500 ML IV ONE (08:55)
[2019-06-28] MEDS ORDERED: XYLOCAINE TOPICAL 4% TP ONE (08:55)
[2019-06-28] MEDS ORDERED: BENADRYL IV ONE (08:55)
[2019-06-28] MEDS ORDERED: REGLAN IV ONE (08:55)
[2019-06-28] MEDS ORDERED: MAGNESIUM SULFATE 2GM/50ML 2 GM/50 ML BAG IV ONE (08:55)
[2019-06-28 08:56] LABS: Hematocrit 40.7 % (30.3-42.9); Hemoglobin 12.5 gm/dl (10.1-14.3)
--- NOTE | 2019-06-28 09:02 | XRay Report ---
CHEST 1 VIEW INDICATION: Chest pain, nausea and vomiting, severe headache. COMPARISON: FINDINGS: Support devices: None. Heart: Previous CABG changes are noted. Mild cardiomegaly is evident. The aorta is mildly ectatic but well defined. Lungs/Pleura: Mild central pulmonary venous congestion is identified. No evidence for infiltrate, ple ural effusion or pneumothorax. Additional findings: None. IMPRESSION: Mild cardiomegaly and central pulmonary venous congestion. No CHF. Signer Name: Alvarado Polo Jr, MD Signed: 06/28/2019 8:58 AM Workstation Name: [id number]
[2019-06-28] MEDS ORDERED: APRESOLINE IV ONE (09:06)
[2019-06-28 09:19] LABS: Creatine Kinase MB 3.3 ng/mL (0.0-4.0)
[2019-06-28 09:22] LABS: Alanine Aminotransferase 10 units/L (7-56); Albumin 4.1 g/dL (3.9-5); Bilirubin,Direct < 0.2 mg/dL (0-0.2)
[2019-06-28 09:24] LABS: Alanine Aminotransferase 10 units/L (7-56); BUN/Creatinine Ratio 20; Blood Urea Nitrogen 16 mg/dL (7-17); Calcium 9.7 mg/dL (8.4-10.2); Hemolysis Index 3
[2019-06-28] MEDS ORDERED: NACL 0.9% IV ONE (09:30)
[2019-06-28] MEDS ORDERED: CAFFEINE SOD BENZOATE IV ONE (09:30)
--- NOTE | 2019-06-28 09:48 | Cat Scan Report ---
CT head without contrast INDICATION : oreilly s/p epidural on eliquis. TECHNIQUE: Axial imaging performed from the skull apex through the skull base without the use of con trast. All CT scans at this location are performed using CT dose reduction for ALARA by means of aut omated exposure control. COMPARISON: 06/30/2018 FINDINGS: Parenchyma: No acute intracranial hemorrhage or parenchymal abnormality. Ventricles: Ventricles are normal in size and appear symmetric. Soft tissues: Soft tissues including the orbits appear normal. Bones: No acute osseous abnormality. Sinuses: Sinuses and mastoid air cells are clear. IMPRESSION: Normal head CT. Signer Name: Moses Hernandez MD Signed: 06/28/2019 9:43 AM Workstation Name: [id number]
[2019-06-28 09:55] LABS: INR 1.25 (0.87-1.13)
[2019-06-28 09:56] LABS: Partial Thromboplastin Time 22.4 Sec. (24.2-36.6); Thrombin Time 17.9 Sec. (15.1-19.6)
--- NOTE | 2019-06-28 09:59 | Cat Scan Report ---
CT ABDOMEN AND PELVIS WITHOUT CONTRAST HISTORY: Left lower quadrant abdominal pain COMPARISON: None. TECHNIQUE: Axial CT images were obtained through the abdomen and pelvis without IV contrast. Sagittal and coronal reformatted images. All CT scans at this location are performed using CT dose reduction for ALARA by means of automated exposure control. FINDINGS: CT ABDOMEN: Lung Bases: The visualized lung bases are clear. Mild cardiomegaly is partially imaged. Liver: Normal size and attenuation. There are suspicious a few scattered cysts throughout the liver m easuring up 2.5 cm. No suspicious mass or obvious parenchymal disease. Biliary: No significant abnormality. Spleen: No significant abnormality. Unenlarged. Pancreas: No significant abnormality. Adrenals: No significant abnormality. Kidneys: The kidneys are normal size and position. 2 cysts are identified at the superior pole of the right kidney measuring 3.2 cm and 1.4 cm. The smaller cyst demonstrates hemorrhagic change. No left renal lesion or hydronephrosis. No obvious nephrolithiasis. Lymphatics: No lymphadenopathy. Vasculature: Moderate diffuse aortic and common iliac artery calcifications. No aneurysm. Bowel/Peritoneum: There is no evidence for bowel obstruction. There is a umbilical hernia with a 3 cm neck containing a short segment of the transverse colon. There are numerous diverticula in the desce nding and sigmoid colon but no focal inflammation to suggest diverticulitis is identified. Normal dori endix. CT PELVIS: : Hysterectomy changes are suspected. The bladder and distal ureters are unremarkable. Osseous Structures: Osteopenia is evident. Moderate degenerative changes noted throughout the thoraco lumbar spine. No fracture or suspicious bony lesion. Additional Findings: None IMPRESSION: No acute inflammatory process is identified. Small umbilical hernia containing a short segment of transverse colon. No evidence for obstruction. Diverticulosis of the distal colon but no convincing diverticulitis. Right renal cysts and liver cysts as described. Mild cardiomegaly. Signer Name: Alvarado Polo Jr, MD Signed: 06/28/2019 9:55 AM Workstation Name: [id number]
[2019-06-28] MEDS ORDERED: TYLENOL PO PRN (10:19)
[2019-06-28] MEDS ORDERED: ZOFRAN IV PRN (10:19)
[2019-06-28] MEDS ORDERED: SODIUM CHLORIDE FLUSH SYRINGE 10 ML IV PRN (10:19)
[2019-06-28 11:10] LABS: Bacteria,Urine 1+ /HPF (Negative); Bilirubin,Urine NEG (Negative); Blood,Urine NEG (Negative); Color,Urine Yellow (Yellow); Urobilinogen,Urine < 2.0 mg/dL (<2.0)
[2019-06-28] MEDS ORDERED: MORPHINE ONE (11:21)
[2019-06-28] MEDS: MORPHINE IV PRN ×2 (11:22→13:45)
--- NOTE | 2019-06-28 16:08 | History and Physical Report ---
History of Present Illness Date of examination: 06/28/19 Date of admission: 06/28/19 10:10 Chief complaint: Throbbing headaches History of present illness: Patient is a 78-year-old -[place] female with history of CAD and DM2 who presented to the ED on account of a day history of headaches. She stated that she was given an epidural pain injection for lower back pain yesterday by a pain specialist and subsequently she started experiencing headaches. She she described it as throbbing in nature, generalized and nonradiating. She has associated nausea with vomiting 1 episode and lightheadedness. She denies chest pain, shortness of breath, palpitation, leg swelling, orthopnea, PND, cough, fever, chills, change in mental status, blurry vision, syncope or loss of consciousness. Past History Past Medical History: atrial fib, CAD, COPD (home oxygen, 3 L), diabetes, GERD, hypertension, hyperlipidemia, other (Gout, Asthma, Glaucoma) Past Surgical History: CABG, hysterectomy, Other (carpal tunnel surgery in left hand) Social history: smoking (patient had more than 50 years history of cigarette smoking, she quit about 10 years ago. She admits to occasional alcohol use but denies illicit drug use) Family history: diabetes (father), hypertension (mother) Medications and Allergies Allergies Allergy/AdvReac Type Severity Reaction Status Date / Time meperidine [From Demerol] Allergy Itching Verified 06/30/18 16:56 meperidine HCl [From Demerol] Allergy Hives Verified 07/11/18 17:40 mushroom Allergy Rash Verified 12/23/18 16:06 spinach Allergy Itching Verified 06/30/18 16:57 flurbiprofen [From Ansaid] AdvReac Unknown Verified 07/11/18 17:40 Ohwiqun-Kgw-Fdh Reductase AdvReac Unknown Verified 07/11/18 17:40 Inhibitor Home Medications Medication Instructions Recorded Confirmed Last Taken Type Pravastatin [Pravachol] 40 mg PO DAILY 06/30/18 06/28/19 06/28/19 History Umeclidinium Brm/Vilanterol Tr 1 each IH DAILY 06/30/18 06/28/19 06/28/19 History [Anoro Ellipta 62.5-25 Mcg INH] traMADol [Ultram 50 MG tab] 50 mg PO Q6HR PRN 06/30/18 06/28/19 06/27/19 History Allopurinol [Zyloprim] 300 mg PO QDAY 07/11/18 06/28/19 12/17/18 10:30 History ISOSORBIDE MONOnitrate [Imdur ER] 30 mg PO DAILY 07/11/18 06/28/19 12/17/18 10:30 History 30 Latanoprost 0.005% 1 drop OU QPM 07/11/18 06/28/19 12/17/18 10:30 History Pantoprazole [Protonix TAB] 40 mg PO QDAY 07/11/18 06/28/19 12/17/18 10:30 History glipiZIDE [Glipizide] 5 mg PO QAM 07/11/18 06/28/19 12/17/18 10:30 History Apixaban [Eliquis] 5 mg PO Q12HR #30 tablet 07/13/18 06/28/19 06/28/19 Rx Lisinopril [Zestril TAB] 5 mg PO QDAY #30 tablet 07/13/18 06/28/19 12/17/18 10:30 Rx Nitroglycerin [Nitrostat] 0.4 mg SL Q5M PRN 12/18/18 06/28/19 Unknown History Furosemide [Lasix] 20 mg PO QDAY 06/28/19 06/28/19 Unknown History Metoprolol Xl [Metoprolol 25 mg PO QDAY 06/28/19 06/28/19 Unknown History SUCCINATE ER TAB] glipiZIDE [Glucotrol] 5 mg PO QPM PRN 06/28/19 06/28/19 Unknown History Active Meds: Active Medications Acetaminophen (Tylenol) 650 mg PO Q4H PRN PRN Reason: Pain MILD(1-3)/Fever >100.5/OLIVERA Morphine Sulfate (Morphine) 2 mg IV Q4H PRN PRN Reason: Pain , Severe (7-10) Last Admin: 06/28/19 13:45 Dose: 2 mg Documented by: Ondansetron HCl (Zofran) 4 mg IV Q8H PRN PRN Reason: Nausea And Vomiting Oxycodone/Acetaminophen (Percocet 5/325) 1 tab PO Q6H PRN PRN Reason: Pain, Moderate (4-6) Sodium Chloride (Sodium Chloride Flush Syringe 10 Ml) 10 ml IV BID ALFRED Sodium Chloride (Sodium Chloride Flush Syringe 10 Ml) 10 ml IV PRN PRN PRN Reason: LINE FLUSH Stop: 07/08/19 10:18 Review of Systems All systems: negative (14 systems reviewed with the patient and were negative) Exam - Constitutional Vitals: Temp Pulse Resp BP Pulse Ox 98.0 F 83 20 161/70 99 06/28/19 08:07 06/28/19 10:30 06/28/19 10:30 06/28/19 10:30 06/28/19 10:30 General appearance: Present: no acute distress, obese - EENT Eyes: Present: PERRL, EOM intact ENT: hearing intact, clear oral mucosa - Neck Neck: Present: supple, normal ROM - Respiratory Respiratory effort: normal Respiratory: bilateral: CTA - Cardiovascular Rhythm: regular Heart Sounds: Present: S1 & S2 - Extremities Extremities: No edema Peripheral Pulses: within normal limits - Abdominal General gastrointestinal: Present: soft, non-tender, non-distended, normal bowel sounds Female genitourinary: Present: deferred - Integumentary Integumentary: Present: clear, warm, dry - Musculoskeletal Musculoskeletal: gait normal, strength equal bilaterally - Psychiatric Psychiatric: appropriate mood/affect, intact judgment & insight - Neurologic Neurologic: CNII-XII intact, moves all extremities Results - Labs CBC & Chem 7: 06/28/19 08:24 06/28/19 08:24 Labs: Laboratory Last Values WBC 9.1 K/mm3 (4.5-11.0) 06/28/19 08:24 RBC 5.16 M/mm3 (3.65-5.03) H 06/28/19 08:24 Hgb 12.5 gm/dl (10.1-14.3) 06/28/19 08:24 Hct 40.7 % (30.3-42.9) 06/28/19 08:24 MCV 79 fl (79-97) 06/28/19 08:24 MCH 24 pg (28-32) L 06/28/19 08:24 MCHC 31 % (30-34) 06/28/19 08:24 RDW 16.9 % (13.2-15.2) H 06/28/19 08:24 Plt Count 216 K/mm3 (140-440) 06/28/19 08:24 Lymph % (Auto) 25.7 % (13.4-35.0) 06/28/19 08:24 [place] % (Auto) 8.2 % (0.0-7.3) H 06/28/19 08:24 Eos % (Auto) 0.1 % (0.0-4.3) 06/28/19 08:24 Baso % (Auto) 0.2 % (0.0-1.8) 06/28/19 08:24 Lymph # 2.3 K/mm3 (1.2-5.4) 06/28/19 08:24 [place] # 0.7 K/mm3 (0.0-0.8) 06/28/19 08:24 Eos # 0.0 K/mm3 (0.0-0.4) 06/28/19 08:24 Baso # 0.0 K/mm3 (0.0-0.1) 06/28/19 08:24 Seg Neutrophils % 65.8 % (40.0-70.0) 06/28/19 08:24 Seg Neutrophils # 6.0 K/mm3 (1.8-7.7) 06/28/19 08:24 PT 15.4 Sec. (12.2-14.9) H 06/28/19 09:25 INR 1.25 (0.87-1.13) H 06/28/19 09:25 APTT 22.4 Sec. (24.2-36.6) L 06/28/19 09:25 17.9 Sec. (15.1-19.6) 06/28/19 09:25 Sodium 139 mmol/L (137-145) 06/28/19 08:24 Potassium 4.1 mmol/L (3.6-5.0) 06/28/19 08:24 Chloride 98.9 mmol/L (98-107) 06/28/19 08:24 Carbon Dioxide 27 mmol/L (22-30) 06/28/19 08:24 17 mmol/L 06/28/19 08:24 BUN 16 mg/dL (7-17) 06/28/19 08:24 0.8 mg/dL (0.7-1.2) 06/28/19 08:24 Estimated GFR > 60 ml/min 06/28/19 08:24 20 % 06/28/19 08:24 Glucose 140 mg/dL (65-100) H 06/28/19 08:24 POC Glucose 128 (70-105) H 06/28/19 14:04 Calcium 9.7 mg/dL (8.4-10.2) 06/28/19 08:24 Magnesium 2.00 mg/dL (1.7-2.3) 06/28/19 08:24 0.30 mg/dL (0.1-1.2) 06/28/19 08:24 0.30 mg/dL (0.1-1.2) 06/28/19 08:24 < 0.2 mg/dL (0-0.2) 06/28/19 08:24 0.1 mg/dL 06/28/19 08:24 AST 13 units/L (5-40) 06/28/19 08:24 AST 13 units/L (5-40) 06/28/19 08:24 ALT 10 units/L (7-56) 06/28/19 08:24 ALT 10 units/L (7-56) 06/28/19 08:24 31 units/L (35-129) L 06/28/19 08:24 31 units/L (35-129) L 06/28/19 08:24 54 units/L (30-135) 06/28/19 08:24 CK-MB (CK-2) 3.3 ng/mL (0.0-4.0) 06/28/19 08:24 CK-MB (CK-2) Rel Index 6.1 (0-4) H 06/28/19 08:24 < 0.010 ng/mL (0.00-0.029) 06/28/19 14:58 7.1 g/dL (6.3-8.2) 06/28/19 08:24 7.2 g/dL (6.3-8.2) 06/28/19 08:24 4.0 g/dL (3.9-5) 06/28/19 08:24 4.1 g/dL (3.9-5) 06/28/19 08:24 1.3 % 06/28/19 08:24 1.4 % 06/28/19 08:24 Yellow (Yellow) 06/28/19 Unknown Clear (Clear) 06/28/19 Unknown 6.0 (5.0-7.0) 06/28/19 Unknown Ur Specific [place] 1.019 (1.003-1.030) 06/28/19 Unknown 30 mg/dl mg/dL (Negative) 06/28/19 Unknown Neg mg/dL (Negative) 06/28/19 Unknown Tr mg/dL (Negative) 06/28/19 Unknown Neg (Negative) 06/28/19 Unknown Neg (Negative) 06/28/19 Unknown Neg (Negative) 06/28/19 Unknown < 2.0 mg/dL (<2.0) 06/28/19 Unknown Ur Leukocyte Esterase Neg (Negative) 06/28/19 Unknown 1.0 /HPF (0.0-6.0) 06/28/19 Unknown 4.0 /HPF (0.0-6.0) 06/28/19 Unknown U Epithel Cells (Auto) < 1.0 /HPF (0-13.0) 06/28/19 Unknown 1+ /HPF (Negative) 06/28/19 Unknown Assessment and Plan Assessment and plan: Severe headaches -Likely due to the recent epidural injection -CT head negative for acute findings -Further evaluation with MRI brain per neurology -On when necessary narcotics for pain control Paroxysmal atrial fibrillation on chronic oral anticoagulation -Heart rate controlled -Continue oral anticoagulation with Eliquis COPD/Asthma -No acute exacerbation -On neb breathing treatments Chronic respiratory failure with hypoxia -Continue oxygen supplementation as needed HTN -Uncontrolled probably due to pain -Home antihypertensives resumed, we will monitor NIDDM2 complicated with retinopathy -Controlled -On SSI and Lantus -Continue home ophthalmic agent CAD -Stable. She denies current chest pain -Home meds resumed HLD -Continue statin GERD -Continue Protonix Gout -No acute flare -Continue allopurinol Morbid obesity with BMI of 40.7 -Lifestyle modification recommended Disposition: Patient will be placed in observation status pending further evaluation with MRI brain Time spent: 38 minutes
[2019-06-28] MEDS ORDERED: NITROSTAT SL PRN (16:17)
[2019-06-28] MEDS ORDERED: APRESOLINE IV PRN (16:20)
[2019-06-28] MEDS ORDERED: D50W (25GM) Syringe IV PRN (16:22)
[2019-06-28] MEDS ORDERED: ZESTRIL PO SCH (17:00)
[2019-06-28] MEDS: DUONEB *Not for PRN Use IH SCH ×2 (18:26→21:17)
[2019-06-28] MEDS: HumaLOG SUB-Q SCH ×2 (18:32→21:53)
[2019-06-28] MEDS: LASIX PO SCH (18:34)
[2019-06-28] MEDS: IMDUR PO SCH (18:34)
[2019-06-28] MEDS: TOPROL XL PO SCH (18:35)
[2019-06-28] MEDS: ZESTRIL PO SCH (18:36)
[2019-06-28] MEDS: PERCOCET 5/325 PO PRN (18:41)
[2019-06-28] MEDS: ELIQUIS PO SCH (22:24)
[2019-06-28] MEDS: PRAVACHOL PO SCH (22:24)
[2019-06-28] MEDS: SODIUM CHLORIDE FLUSH SYRINGE 10 ML IV SCH (22:25)
[2019-06-28] MEDS: LANTUS SUB-Q SCH (23:39)
[2019-06-29] MEDS: PERCOCET 5/325 PO PRN ×3 (00:08→13:18)
[2019-06-29] MEDS: LATANOPROST 0.005% OU SCH ×2 (00:10→18:07)
[2019-06-29] MEDS: DUONEB *Not for PRN Use IH SCH ×4 (01:55→20:45)
[2019-06-29] MEDS: LASIX PO SCH (06:16)
[2019-06-29] MEDS: HumaLOG SUB-Q SCH ×4 (06:31→22:20)
[2019-06-29] MEDS ORDERED: ATIVAN PO SCH (09:00)
[2019-06-29] MEDS: ELIQUIS PO SCH ×2 (09:05→22:21)
[2019-06-29] MEDS: ZESTRIL PO SCH (09:05)
[2019-06-29] MEDS: ZYLOPRIM PO SCH (09:06)
[2019-06-29] MEDS: TOPROL XL PO SCH (09:06)
[2019-06-29] MEDS: PROTONIX PO SCH (09:06)
[2019-06-29] MEDS: IMDUR PO SCH (09:07)
[2019-06-29] MEDS: SODIUM CHLORIDE FLUSH SYRINGE 10 ML IV SCH ×2 (09:08→22:21)
--- NOTE | 2019-06-29 11:24 | Magnetic Resonance Report ---
MRI BRAIN WITHOUT AND WITH CONTRAST INDICATION / CLINICAL INFORMATION: throbbing headaches post epidural injection. TECHNIQUE: Multiplanar, multisequence MR images of the brain were obtained. The patient received 19 mL of IV Mul tiHance. COMPARISON: Head CT on 06/28/2019. Brain MRI on 07/01/2018. FINDINGS: BRAIN / INTRACRANIAL CONTENTS: No acute ischemia, acute hemorrhage, mass effect, midline shift, or hy drocephalus. No chronic infarct. Age-commensurate generalized ventricular and cisternal/sulcal promi nence without discrete superimposed focal atrophy. Stable age-commensurate small foci of cerebral whi te matter FLAIR hyperintensity. No abnormal enhancement. CRANIOCERVICAL JUNCTION: No significant abnormality. VASCULAR FLOW-VOIDS: No significant abnormality. ORBITS: No significant abnormality of visualized orbits. SINUSES / MASTOIDS: No significant abnormality of visualized sinuses and mastoid air cells. ADDITIONAL FINDINGS: None. IMPRESSION: 1. No acute or concerning intracranial abnormality. No adverse change from previous brain MRI on 2017. Signer Name: Caleb Slater MD Signed: 06/29/2019 11:19 AM Workstation Name: [email or web address]
--- NOTE | 2019-06-29 14:59 | Progress Note ---
Assessment and Plan Assessment and plan: Severe headaches -Likely due to the recent epidural injection -CT head and MRI brain negative for acute findings -Pain slightly improved, cont PRN narcotics Paroxysmal atrial fibrillation on chronic oral anticoagulation -Heart rate controlled -Continue oral anticoagulation with Eliquis COPD/Asthma -No acute exacerbation -On neb breathing treatments Chronic respiratory failure with hypoxia -Continue oxygen supplementation as needed HTN -Controlled on meds NIDDM2 complicated with retinopathy -Controlled on SSI and Lantus -Continue home ophthalmic agent CAD -Stable. -Cont home meds HLD -Continue statin GERD -Continue Protonix Gout -No acute flare -Continue allopurinol Morbid obesity with BMI of 40.7 -Lifestyle modification recommended Disposition: Due to the uncontrolled headaches, we will continue treatment for another 24 hours and plan for discharge tomorrow if stable History Interval history: Pt reports slight improvement in her headaches. She also complained of constipation. She denies visual changes, abdominal pain, N/V. Hospitalist Physical - Constitutional Vitals: Temp Pulse Resp BP Pulse Ox 98.0 F 52 L 20 132/52 100 06/29/19 13:13 06/29/19 13:13 06/29/19 13:13 06/29/19 13:13 06/29/19 13:13 General appearance: Present: no acute distress, obese - EENT Eyes: Present: PERRL, EOM intact ENT: hearing intact, clear oral mucosa - Neck Neck: Present: supple - Respiratory Respiratory effort: normal Respiratory: bilateral: CTA - Cardiovascular Rhythm: regular Heart Sounds: Present: S1 & S2 - Extremities Extremities: No edema - Abdominal General gastrointestinal: soft, non-tender, normal bowel sounds - Integumentary Integumentary: Present: clear, warm, dry - Psychiatric Psychiatric: appropriate mood/affect - Neurologic Neurologic: CNII-XII intact Results - Labs CBC & Chem 7: 06/28/19 08:24 06/28/19 08:24 Labs: Laboratory Last Values WBC 9.1 K/mm3 (4.5-11.0) 06/28/19 08:24 RBC 5.16 M/mm3 (3.65-5.03) H 06/28/19 08:24 Hgb 12.5 gm/dl (10.1-14.3) 06/28/19 08:24 Hct 40.7 % (30.3-42.9) 06/28/19 08:24 MCV 79 fl (79-97) 06/28/19 08:24 MCH 24 pg (28-32) L 06/28/19 08:24 MCHC 31 % (30-34) 06/28/19 08:24 RDW 16.9 % (13.2-15.2) H 06/28/19 08:24 Plt Count 216 K/mm3 (140-440) 06/28/19 08:24 Lymph % (Auto) 25.7 % (13.4-35.0) 06/28/19 08:24 [place] % (Auto) 8.2 % (0.0-7.3) H 06/28/19 08:24 Eos % (Auto) 0.1 % (0.0-4.3) 06/28/19 08:24 Baso % (Auto) 0.2 % (0.0-1.8) 06/28/19 08:24 Lymph # 2.3 K/mm3 (1.2-5.4) 06/28/19 08:24 [place] # 0.7 K/mm3 (0.0-0.8) 06/28/19 08:24 Eos # 0.0 K/mm3 (0.0-0.4) 06/28/19 08:24 Baso # 0.0 K/mm3 (0.0-0.1) 06/28/19 08:24 Seg Neutrophils % 65.8 % (40.0-70.0) 06/28/19 08:24 Seg Neutrophils # 6.0 K/mm3 (1.8-7.7) 06/28/19 08:24 PT 15.4 Sec. (12.2-14.9) H 06/28/19 09:25 INR 1.25 (0.87-1.13) H 06/28/19 09:25 APTT 22.4 Sec. (24.2-36.6) L 06/28/19 09:25 17.9 Sec. (15.1-19.6) 06/28/19 09:25 Sodium 139 mmol/L (137-145) 06/28/19 08:24 Potassium 4.1 mmol/L (3.6-5.0) 06/28/19 08:24 Chloride 98.9 mmol/L (98-107) 06/28/19 08:24 Carbon Dioxide 27 mmol/L (22-30) 06/28/19 08:24 17 mmol/L 06/28/19 08:24 BUN 16 mg/dL (7-17) 06/28/19 08:24 0.8 mg/dL (0.7-1.2) 06/28/19 08:24 Estimated GFR > 60 ml/min 06/28/19 08:24 20 % 06/28/19 08:24 Glucose 140 mg/dL (65-100) H 06/28/19 08:24 POC Glucose 132 (70-105) H 06/29/19 11:35 Calcium 9.7 mg/dL (8.4-10.2) 06/28/19 08:24 Magnesium 2.00 mg/dL (1.7-2.3) 06/28/19 08:24 0.30 mg/dL (0.1-1.2) 06/28/19 08:24 0.30 mg/dL (0.1-1.2) 06/28/19 08:24 < 0.2 mg/dL (0-0.2) 06/28/19 08:24 0.1 mg/dL 06/28/19 08:24 AST 13 units/L (5-40) 06/28/19 08:24 AST 13 units/L (5-40) 06/28/19 08:24 ALT 10 units/L (7-56) 06/28/19 08:24 ALT 10 units/L (7-56) 06/28/19 08:24 31 units/L (35-129) L 06/28/19 08:24 31 units/L (35-129) L 06/28/19 08:24 54 units/L (30-135) 06/28/19 08:24 CK-MB (CK-2) 3.3 ng/mL (0.0-4.0) 06/28/19 08:24 CK-MB (CK-2) Rel Index 6.1 (0-4) H 06/28/19 08:24 < 0.010 ng/mL (0.00-0.029) 06/28/19 14:58 7.1 g/dL (6.3-8.2) 06/28/19 08:24 7.2 g/dL (6.3-8.2) 06/28/19 08:24 4.0 g/dL (3.9-5) 06/28/19 08:24 4.1 g/dL (3.9-5) 06/28/19 08:24 1.3 % 06/28/19 08:24 1.4 % 06/28/19 08:24 Yellow (Yellow) 06/28/19 Unknown Clear (Clear) 06/28/19 Unknown 6.0 (5.0-7.0) 06/28/19 Unknown Ur Specific [place] 1.019 (1.003-1.030) 06/28/19 Unknown 30 mg/dl mg/dL (Negative) 06/28/19 Unknown Neg mg/dL (Negative) 06/28/19 Unknown Tr mg/dL (Negative) 06/28/19 Unknown Neg (Negative) 06/28/19 Unknown Neg (Negative) 06/28/19 Unknown Neg (Negative) 06/28/19 Unknown < 2.0 mg/dL (<2.0) 06/28/19 Unknown Ur Leukocyte Esterase Neg (Negative) 06/28/19 Unknown 1.0 /HPF (0.0-6.0) 06/28/19 Unknown 4.0 /HPF (0.0-6.0) 06/28/19 Unknown U Epithel Cells (Auto) < 1.0 /HPF (0-13.0) 06/28/19 Unknown 1+ /HPF (Negative) 06/28/19 Unknown Active Medications - Current Medications Current Medications: Generic Name Dose Route Start Last Admin Trade Name Daleq PRN Reason Stop Dose Admin Acetaminophen 650 mg 06/28/19 10:19 Tylenol PO Q4H PRN Pain MILD(1-3)/Fever >100.5/OLIVERA Albuterol/Ipratropium 1 ampul 06/28/19 16:30 06/29/19 10:35 Duoneb *Not For Prn Use* IH Not Given Q6HRT [facility] Allopurinol 150 mg 06/29/19 10:00 06/29/19 09:06 Zyloprim PO 150 mg QDAY ALFRED Administration Apixaban 5 mg 06/28/19 22:00 06/29/19 09:05 Eliquis PO 5 mg Q12HR ALFRED Administration Protocol Dextrose 50 ml 06/28/19 16:22 D50w (25gm) Syringe IV PRN PRN Hypoglycemia Furosemide 20 mg 06/28/19 17:00 06/29/19 06:16 Lasix PO 20 mg DAILY@0600 [facility] Administration Hydralazine HCl 10 mg 06/28/19 16:20 Apresoline IV Q4HR PRN Blood Pressure Insulin Glargine 10 units 06/28/19 22:00 06/28/19 23:39 Lantus SUB-Q Not Given QHS [facility] Insulin Human Lispro 0 unit 06/28/19 16:30 06/29/19 11:28 Humalog SUB-Q Not Given [facility] Protocol Isosorbide Mononitrate 30 mg 06/28/19 17:00 06/29/19 09:07 Imdur PO 30 mg DAILY ALFRED Administration Latanoprost 1 drops 06/28/19 18:00 06/29/19 00:10 Latanoprost 0.005% OU 1 drops QPM ALFRED Administration Lisinopril 40 mg 06/28/19 17:00 06/29/19 09:05 Zestril PO 40 mg QDAY [facility] Administration Metoprolol Succinate 25 mg 06/28/19 17:00 06/29/19 09:06 Toprol Xl PO 25 mg QDAY [facility] Administration Morphine Sulfate 2 mg 06/28/19 10:19 06/28/19 13:45 Morphine IV 2 mg Q4H PRN Administration Pain , Severe (7-10) Nitroglycerin 0.4 mg 06/28/19 16:17 Nitrostat SL Q5M PRN Chest Pain Ondansetron HCl 4 mg 06/28/19 10:19 Zofran IV Q8H PRN Nausea And Vomiting Oxycodone/Acetaminophen 1 tab 06/28/19 10:19 06/29/19 13:18 Percocet 5/325 PO 1 tab Q6H PRN Administration Pain, Moderate (4-6) Pantoprazole Sodium 40 mg 06/29/19 10:00 06/29/19 09:06 Protonix PO 40 mg QDAY [facility] Administration Pravastatin Sodium 40 mg 06/28/19 22:00 06/28/19 22:24 Pravachol PO 40 mg QHS [facility] Administration Sodium Chloride 10 ml 06/28/19 22:00 06/29/19 09:08 Sodium Chloride Flush Syringe 10 Ml IV 10 ml BID ALFRED Administration Sodium Chloride 10 ml 06/28/19 10:19 Sodium Chloride Flush Syringe 10 Ml IV 07/08/19 10:18 PRN PRN LINE FLUSH
[2019-06-29] MEDS: MIRALAX 3350 PO SCH (15:15)
[2019-06-29] MEDS: MORPHINE IV PRN (22:19)
[2019-06-29] MEDS: PRAVACHOL PO SCH (22:20)
[2019-06-29] MEDS: LANTUS SUB-Q SCH (22:20)
[2019-06-30] MEDS: LASIX PO SCH (05:58)
[2019-06-30] MEDS: HumaLOG SUB-Q SCH ×4 (07:36→23:34)
[2019-06-30] MEDS: ELIQUIS PO SCH ×2 (09:00→21:29)
[2019-06-30] MEDS: ZYLOPRIM PO SCH (09:00)
[2019-06-30] MEDS: IMDUR PO SCH (09:01)
[2019-06-30] MEDS: PROTONIX PO SCH (09:02)
[2019-06-30] MEDS: ZESTRIL PO SCH (09:05)
[2019-06-30] MEDS: SODIUM CHLORIDE FLUSH SYRINGE 10 ML IV SCH ×2 (09:05→21:30)
[2019-06-30] MEDS: MIRALAX 3350 PO SCH (09:05)
[2019-06-30] MEDS: DUONEB *Not for PRN Use IH SCH ×3 (09:23→21:18)
[2019-06-30] MEDS ORDERED: CEPHULAC PO ONE (09:55)
[2019-06-30] MEDS ORDERED: DULCOLAX PR ONE (09:56)
--- NOTE | 2019-06-30 16:37 | Progress Note ---
Assessment and Plan Assessment and plan: Severe headaches -Likely due to the recent epidural injection -CT head and MRI brain negative for acute findings -Pain continues to improve on PRN narcotics Paroxysmal atrial fibrillation on chronic oral anticoagulation -Heart rate controlled -Continue oral anticoagulation with Eliquis COPD/Asthma -No acute exacerbation -On neb breathing treatments Chronic respiratory failure with hypoxia -Continue oxygen supplementation as needed HTN -Controlled on meds NIDDM2 complicated with retinopathy -Controlled on SSI and Lantus -Continue home ophthalmic agent CAD -Stable. -Cont home meds HLD -Continue statin GERD -Continue Protonix Gout -No acute flare -Continue allopurinol Constipation -On laxatives Morbid obesity with BMI of 40.7 -Lifestyle modification recommended Disposition: Patient requested to stay another day in the hospital because she is currently unable to carry out her ADL at home. She stated that she lives alone and has history of recent falls. History Interval history: Patient stated that she would like to stay another day in the hospital because she is currently unable to carry out her ADL at home. She stated that she lives alone and has history of recent falls. Her headache is better on the pain meds. She still has not had a bowel movement Hospitalist Physical - Constitutional Vitals: Temp Pulse Resp BP Pulse Ox 98.0 F 89 20 132/70 99 06/30/19 13:41 06/30/19 13:41 06/30/19 13:41 06/30/19 13:41 06/30/19 13:41 General appearance: Present: no acute distress, obese - EENT Eyes: Present: PERRL, EOM intact ENT: hearing intact, clear oral mucosa - Neck Neck: Present: supple, normal ROM - Respiratory Respiratory effort: normal Respiratory: bilateral: CTA - Cardiovascular Rhythm: regular Heart Sounds: Present: S1 & S2 - Extremities Extremities: No edema - Abdominal General gastrointestinal: soft, non-tender, normal bowel sounds - Integumentary Integumentary: Present: clear, warm, dry - Psychiatric Psychiatric: appropriate mood/affect - Neurologic Neurologic: CNII-XII intact Results - Labs CBC & Chem 7: 06/28/19 08:24 06/28/19 08:24 Labs: Laboratory Last Values WBC 9.1 K/mm3 (4.5-11.0) 06/28/19 08:24 RBC 5.16 M/mm3 (3.65-5.03) H 06/28/19 08:24 Hgb 12.5 gm/dl (10.1-14.3) 06/28/19 08:24 Hct 40.7 % (30.3-42.9) 06/28/19 08:24 MCV 79 fl (79-97) 06/28/19 08:24 MCH 24 pg (28-32) L 06/28/19 08:24 MCHC 31 % (30-34) 06/28/19 08:24 RDW 16.9 % (13.2-15.2) H 06/28/19 08:24 Plt Count 216 K/mm3 (140-440) 06/28/19 08:24 Lymph % (Auto) 25.7 % (13.4-35.0) 06/28/19 08:24 [place] % (Auto) 8.2 % (0.0-7.3) H 06/28/19 08:24 Eos % (Auto) 0.1 % (0.0-4.3) 06/28/19 08:24 Baso % (Auto) 0.2 % (0.0-1.8) 06/28/19 08:24 Lymph # 2.3 K/mm3 (1.2-5.4) 06/28/19 08:24 [place] # 0.7 K/mm3 (0.0-0.8) 06/28/19 08:24 Eos # 0.0 K/mm3 (0.0-0.4) 06/28/19 08:24 Baso # 0.0 K/mm3 (0.0-0.1) 06/28/19 08:24 Seg Neutrophils % 65.8 % (40.0-70.0) 06/28/19 08:24 Seg Neutrophils # 6.0 K/mm3 (1.8-7.7) 06/28/19 08:24 PT 15.4 Sec. (12.2-14.9) H 06/28/19 09:25 INR 1.25 (0.87-1.13) H 06/28/19 09:25 APTT 22.4 Sec. (24.2-36.6) L 06/28/19 09:25 17.9 Sec. (15.1-19.6) 06/28/19 09:25 Sodium 139 mmol/L (137-145) 06/28/19 08:24 Potassium 4.1 mmol/L (3.6-5.0) 06/28/19 08:24 Chloride 98.9 mmol/L (98-107) 06/28/19 08:24 Carbon Dioxide 27 mmol/L (22-30) 06/28/19 08:24 17 mmol/L 06/28/19 08:24 BUN 16 mg/dL (7-17) 06/28/19 08:24 0.8 mg/dL (0.7-1.2) 06/28/19 08:24 Estimated GFR > 60 ml/min 06/28/19 08:24 20 % 06/28/19 08:24 Glucose 140 mg/dL (65-100) H 06/28/19 08:24 POC Glucose 129 (70-105) H 06/30/19 07:26 Calcium 9.7 mg/dL (8.4-10.2) 06/28/19 08:24 Magnesium 2.00 mg/dL (1.7-2.3) 06/28/19 08:24 0.30 mg/dL (0.1-1.2) 06/28/19 08:24 0.30 mg/dL (0.1-1.2) 06/28/19 08:24 < 0.2 mg/dL (0-0.2) 06/28/19 08:24 0.1 mg/dL 06/28/19 08:24 AST 13 units/L (5-40) 06/28/19 08:24 AST 13 units/L (5-40) 06/28/19 08:24 ALT 10 units/L (7-56) 06/28/19 08:24 ALT 10 units/L (7-56) 06/28/19 08:24 31 units/L (35-129) L 06/28/19 08:24 31 units/L (35-129) L 06/28/19 08:24 54 units/L (30-135) 06/28/19 08:24 CK-MB (CK-2) 3.3 ng/mL (0.0-4.0) 06/28/19 08:24 CK-MB (CK-2) Rel Index 6.1 (0-4) H 06/28/19 08:24 < 0.010 ng/mL (0.00-0.029) 06/28/19 14:58 7.1 g/dL (6.3-8.2) 06/28/19 08:24 7.2 g/dL (6.3-8.2) 06/28/19 08:24 4.0 g/dL (3.9-5) 06/28/19 08:24 4.1 g/dL (3.9-5) 06/28/19 08:24 1.3 % 06/28/19 08:24 1.4 % 06/28/19 08:24 Yellow (Yellow) 06/28/19 Unknown Clear (Clear) 06/28/19 Unknown 6.0 (5.0-7.0) 06/28/19 Unknown Ur Specific [place] 1.019 (1.003-1.030) 06/28/19 Unknown 30 mg/dl mg/dL (Negative) 06/28/19 Unknown Neg mg/dL (Negative) 06/28/19 Unknown Tr mg/dL (Negative) 06/28/19 Unknown Neg (Negative) 06/28/19 Unknown Neg (Negative) 06/28/19 Unknown Neg (Negative) 06/28/19 Unknown < 2.0 mg/dL (<2.0) 06/28/19 Unknown Ur Leukocyte Esterase Neg (Negative) 06/28/19 Unknown 1.0 /HPF (0.0-6.0) 06/28/19 Unknown 4.0 /HPF (0.0-6.0) 06/28/19 Unknown U Epithel Cells (Auto) < 1.0 /HPF (0-13.0) 06/28/19 Unknown 1+ /HPF (Negative) 06/28/19 Unknown Active Medications - Current Medications Current Medications: Generic Name Dose Route Start Last Admin Trade Name Freq PRN Reason Stop Dose Admin Acetaminophen 650 mg 06/28/19 10:19 Tylenol PO Q4H PRN Pain MILD(1-3)/Fever >100.5/OLIVERA Albuterol/Ipratropium 1 ampul 06/28/19 16:30 06/30/19 09:23 Duoneb *Not For Prn Use* IH 1 ampul Q6HRT ALFRED Administration Allopurinol 150 mg 06/29/19 10:00 08/02/19 09:00 Zyloprim PO 150 mg QDAY [facility] Administration Apixaban 5 mg 06/28/19 22:00 06/30/19 09:00 Eliquis PO 5 mg Q12HR ALFRED Administration Protocol Dextrose 50 ml 06/28/19 16:22 D50w (25gm) Syringe IV PRN PRN Hypoglycemia Furosemide 20 mg 06/28/19 17:00 06/30/19 05:58 Lasix PO 20 mg DAILY@0600 [facility] Administration Hydralazine HCl 10 mg 06/28/19 16:20 Apresoline IV Q4HR PRN Blood Pressure Insulin Glargine 10 units 06/28/19 22:00 06/29/19 22:20 Lantus SUB-Q 10 units QHS ALFRED Administration Insulin Human Lispro 0 unit 06/28/19 16:30 06/30/19 11:42 Humalog SUB-Q Not Given ACHS [facility] Protocol Isosorbide Mononitrate 30 mg 06/28/19 17:00 06/30/19 09:01 Imdur PO 30 mg DAILY ALFRED Administration Latanoprost 1 drops 06/28/19 18:00 06/29/19 18:07 Latanoprost 0.005% OU 1 drops QPM ALFRED Administration Lisinopril 40 mg 06/28/19 17:00 06/30/19 09:05 Zestril PO Not Given QDAY ALFRED Morphine Sulfate 2 mg 06/28/19 10:19 06/29/19 22:19 Morphine IV 2 mg Q4H PRN Administration Pain , Severe (7-10) Nitroglycerin 0.4 mg 06/28/19 16:17 Nitrostat SL Q5M PRN Chest Pain Ondansetron HCl 4 mg 06/28/19 10:19 06/29/19 22:19 Zofran IV 4 mg Q8H PRN Administration Nausea And Vomiting Oxycodone/Acetaminophen 1 tab 06/28/19 10:19 06/29/19 13:18 Percocet 5/325 PO 1 tab Q6H PRN Administration Pain, Moderate (4-6) Pantoprazole Sodium 40 mg 06/29/19 10:00 06/30/19 09:02 Protonix PO 40 mg QDAY [facility] Administration Polyethylene Glycol 17 gm 06/29/19 16:00 06/30/19 09:05 Miralax 3350 PO 17 gm QDAY ALFRED Administration Pravastatin Sodium 40 mg 06/28/19 22:00 06/29/19 22:20 Pravachol PO 40 mg QHS ALFRED Administration Sodium Chloride 10 ml 06/28/19 22:00 06/30/19 09:05 Sodium Chloride Flush Syringe 10 Ml IV 10 ml BID ALFRED Administration Sodium Chloride 10 ml 06/28/19 10:19 Sodium Chloride Flush Syringe 10 Ml IV 07/08/19 10:18 PRN PRN LINE FLUSH
[2019-06-30] MEDS: LATANOPROST 0.005% OU SCH (18:02)
[2019-06-30] MEDS: PRAVACHOL PO SCH (21:29)
[2019-06-30] MEDS: CEPHULAC PO SCH (21:33)
[2019-06-30] MEDS: LANTUS SUB-Q SCH (23:35)
[2019-07-01] MEDS: DUONEB *Not for PRN Use IH SCH ×4 (01:30→20:13)
[2019-07-01] MEDS: PERCOCET 5/325 PO PRN (04:12)
[2019-07-01] MEDS: LASIX PO SCH (06:00)
[2019-07-01 06:17] LABS: BUN/Creatinine Ratio 16; Blood Urea Nitrogen 13 mg/dL (7-17); Calcium 8.9 mg/dL (8.4-10.2); Hemolysis Index 4
[2019-07-01] MEDS: HumaLOG SUB-Q SCH ×4 (06:37→22:19)
[2019-07-01] MEDS: CEPHULAC PO SCH ×2 (09:34→21:19)
[2019-07-01] MEDS: MIRALAX 3350 PO SCH (09:34)
[2019-07-01] MEDS: ELIQUIS PO SCH ×2 (09:34→21:02)
[2019-07-01] MEDS: ZYLOPRIM PO SCH (09:35)
[2019-07-01] MEDS: PROTONIX PO SCH (09:35)
[2019-07-01] MEDS: IMDUR PO SCH (09:35)
[2019-07-01] MEDS: SODIUM CHLORIDE FLUSH SYRINGE 10 ML IV SCH ×2 (09:36→21:02)
--- NOTE | 2019-07-01 11:18 | Progress Note ---
Assessment and Plan Assessment and plan: Acute severe headaches -Likely due to the recent epidural injection -CT head and MRI brain negative for acute findings -Pain controlled on PRN percocets Paroxysmal atrial fibrillation on chronic oral anticoagulation -Heart rate controlled -Continue oral anticoagulation with Eliquis COPD/Asthma -No acute exacerbation -On neb breathing treatments Chronic respiratory failure with hypoxia -Continue oxygen supplementation as needed HTN -Controlled NIDDM2 complicated with retinopathy -Controlled on SSI and Lantus -Continue home ophthalmic agent CAD -Stable. -Cont home meds HLD -Continue statin GERD -Continue Protonix Gout -No acute flare -Continue allopurinol Constipation -On laxatives Morbid obesity with BMI of 40.7 -Lifestyle modification recommended Unsteady gait -PT recommended MICKEY Disposition: PT recommended MICKEY, assistant case manager consulted History Interval history: Pt was evaluated by PT and MICKEY was recommended due to unsteady gait. Pt continues to complain of intermittent headaches controlled on narcotics. She denies change in vision, nausea or vomiting. Hospitalist Physical - Constitutional Vitals: Temp Pulse Resp BP Pulse Ox 98.0 F 76 20 117/49 97 07/01/19 07:28 07/01/19 07:28 07/01/19 07:28 07/01/19 07:28 07/01/19 07:28 General appearance: Present: no acute distress, obese - EENT Eyes: Present: PERRL, EOM intact ENT: hearing intact, clear oral mucosa - Neck Neck: Present: supple - Respiratory Respiratory effort: normal Respiratory: bilateral: CTA - Cardiovascular Rhythm: regular Heart Sounds: Present: S1 & S2 - Extremities Extremities: No edema - Abdominal General gastrointestinal: soft, non-tender, normal bowel sounds - Integumentary Integumentary: Present: clear, warm, dry - Psychiatric Psychiatric: appropriate mood/affect - Neurologic Neurologic: moves all extremities Results - Labs CBC & Chem 7: 06/28/19 08:24 07/01/19 05:10 Labs: Laboratory Last Values WBC 9.1 K/mm3 (4.5-11.0) 06/28/19 08:24 RBC 5.16 M/mm3 (3.65-5.03) H 06/28/19 08:24 Hgb 12.5 gm/dl (10.1-14.3) 06/28/19 08:24 Hct 40.7 % (30.3-42.9) 06/28/19 08:24 MCV 79 fl (79-97) 06/28/19 08:24 MCH 24 pg (28-32) L 06/28/19 08:24 MCHC 31 % (30-34) 06/28/19 08:24 RDW 16.9 % (13.2-15.2) H 06/28/19 08:24 Plt Count 216 K/mm3 (140-440) 06/28/19 08:24 Lymph % (Auto) 25.7 % (13.4-35.0) 06/28/19 08:24 [place] % (Auto) 8.2 % (0.0-7.3) H 06/28/19 08:24 Eos % (Auto) 0.1 % (0.0-4.3) 06/28/19 08:24 Baso % (Auto) 0.2 % (0.0-1.8) 06/28/19 08:24 Lymph # 2.3 K/mm3 (1.2-5.4) 06/28/19 08:24 [place] # 0.7 K/mm3 (0.0-0.8) 06/28/19 08:24 Eos # 0.0 K/mm3 (0.0-0.4) 06/28/19 08:24 Baso # 0.0 K/mm3 (0.0-0.1) 06/28/19 08:24 Seg Neutrophils % 65.8 % (40.0-70.0) 06/28/19 08:24 Seg Neutrophils # 6.0 K/mm3 (1.8-7.7) 06/28/19 08:24 PT 15.4 Sec. (12.2-14.9) H 06/28/19 09:25 INR 1.25 (0.87-1.13) H 06/28/19 09:25 APTT 22.4 Sec. (24.2-36.6) L 06/28/19 09:25 17.9 Sec. (15.1-19.6) 06/28/19 09:25 Sodium 136 mmol/L (137-145) L 07/01/19 05:10 Potassium 3.9 mmol/L (3.6-5.0) 07/01/19 05:10 Chloride 96.3 mmol/L (98-107) L 07/01/19 05:10 Carbon Dioxide 31 mmol/L (22-30) H 07/01/19 05:10 13 mmol/L 07/01/19 05:10 BUN 13 mg/dL (7-17) 07/01/19 05:10 0.8 mg/dL (0.7-1.2) 07/01/19 05:10 Estimated GFR > 60 ml/min 07/01/19 05:10 16 % 07/01/19 05:10 Glucose 110 mg/dL (65-100) H 07/01/19 05:10 POC Glucose 132 (70-105) H 07/01/19 07:35 Calcium 8.9 mg/dL (8.4-10.2) 07/01/19 05:10 Magnesium 2.00 mg/dL (1.7-2.3) 06/28/19 08:24 0.30 mg/dL (0.1-1.2) 06/28/19 08:24 0.30 mg/dL (0.1-1.2) 06/28/19 08:24 < 0.2 mg/dL (0-0.2) 06/28/19 08:24 0.1 mg/dL 06/28/19 08:24 AST 13 units/L (5-40) 06/28/19 08:24 AST 13 units/L (5-40) 06/28/19 08:24 ALT 10 units/L (7-56) 06/28/19 08:24 ALT 10 units/L (7-56) 06/28/19 08:24 31 units/L (35-129) L 06/28/19 08:24 31 units/L (35-129) L 06/28/19 08:24 54 units/L (30-135) 06/28/19 08:24 CK-MB (CK-2) 3.3 ng/mL (0.0-4.0) 06/28/19 08:24 CK-MB (CK-2) Rel Index 6.1 (0-4) H 06/28/19 08:24 < 0.010 ng/mL (0.00-0.029) 06/28/19 14:58 7.1 g/dL (6.3-8.2) 06/28/19 08:24 7.2 g/dL (6.3-8.2) 06/28/19 08:24 4.0 g/dL (3.9-5) 06/28/19 08:24 4.1 g/dL (3.9-5) 06/28/19 08:24 1.3 % 06/28/19 08:24 1.4 % 06/28/19 08:24 Yellow (Yellow) 06/28/19 Unknown Clear (Clear) 06/28/19 Unknown 6.0 (5.0-7.0) 06/28/19 Unknown Ur Specific [place] 1.019 (1.003-1.030) 06/28/19 Unknown 30 mg/dl mg/dL (Negative) 06/28/19 Unknown Neg mg/dL (Negative) 06/28/19 Unknown Tr mg/dL (Negative) 06/28/19 Unknown Neg (Negative) 06/28/19 Unknown Neg (Negative) 06/28/19 Unknown Neg (Negative) 06/28/19 Unknown < 2.0 mg/dL (<2.0) 06/28/19 Unknown Ur Leukocyte Esterase Neg (Negative) 06/28/19 Unknown 1.0 /HPF (0.0-6.0) 06/28/19 Unknown 4.0 /HPF (0.0-6.0) 06/28/19 Unknown U Epithel Cells (Auto) < 1.0 /HPF (0-13.0) 06/28/19 Unknown 1+ /HPF (Negative) 06/28/19 Unknown Active Medications - Current Medications Current Medications: Generic Name Dose Route Start Last Admin Trade Name Freq PRN Reason Stop Dose Admin Acetaminophen 650 mg 06/28/19 10:19 Tylenol PO Q4H PRN Pain MILD(1-3)/Fever >100.5/OLIVERA Albuterol/Ipratropium 1 ampul 06/28/19 16:30 07/01/19 07:03 Duoneb *Not For Prn Use* IH 1 ampul Q6HRT ALFRED Administration Allopurinol 150 mg 06/29/19 10:00 07/01/19 09:35 Zyloprim PO 150 mg QDAY [facility] Administration Apixaban 5 mg 06/28/19 22:00 08/03/19 09:34 Eliquis PO 5 mg Q12HR ALFRED Administration Protocol Dextrose 50 ml 06/28/19 16:22 D50w (25gm) Syringe IV PRN PRN Hypoglycemia Furosemide 20 mg 06/28/19 17:00 07/01/19 06:00 Lasix PO 20 mg DAILY@0600 [facility] Administration Hydralazine HCl 10 mg 06/28/19 16:20 Apresoline IV Q4HR PRN Blood Pressure Insulin Glargine 10 units 06/28/19 22:00 06/30/19 23:35 Lantus SUB-Q 10 units QHS ALFRED Administration Insulin Human Lispro 0 unit 06/28/19 16:30 07/01/19 06:37 Humalog SUB-Q Not Given [facility] Protocol Isosorbide Mononitrate 30 mg 06/28/19 17:00 07/01/19 09:35 Imdur PO 30 mg DAILY ALFRED Administration Lactulose 20 gm 06/30/19 22:00 07/01/19 09:34 Cephulac PO 07/05/19 21:59 20 gm BID ALFRED Administration Latanoprost 1 drops 06/28/19 18:00 06/30/19 18:02 Latanoprost 0.005% OU 1 drops QPM ALFRED Administration Morphine Sulfate 2 mg 06/28/19 10:19 06/29/19 22:19 Morphine IV 2 mg Q4H PRN Administration Pain , Severe (7-10) Nitroglycerin 0.4 mg 06/28/19 16:17 Nitrostat SL Q5M PRN Chest Pain Ondansetron HCl 4 mg 06/28/19 10:19 06/29/19 22:19 Zofran IV 4 mg Q8H PRN Administration Nausea And Vomiting Oxycodone/Acetaminophen 1 tab 06/28/19 10:19 07/01/19 04:12 Percocet 5/325 PO 1 tab Q6H PRN Administration Pain, Moderate (4-6) Pantoprazole Sodium 40 mg 06/29/19 10:00 07/01/19 09:35 Protonix PO 40 mg QDAY [facility]FRED Administration Polyethylene Glycol 17 gm 06/29/19 16:00 07/01/19 09:34 Miralax 3350 PO 17 gm QDAY [facility]FR[facility] Administration Pravastatin Sodium 40 mg 06/28/19 22:00 06/30/19 21:29 Pravachol PO 40 mg QHS ALFRED Administration Sodium Chloride 10 ml 06/28/19 22:00 07/01/19 09:36 Sodium Chloride Flush Syringe 10 Ml IV 10 ml BID ALFRED Administration Sodium Chloride 10 ml 06/28/19 10:19 Sodium Chloride Flush Syringe 10 Ml IV 07/08/19 10:18 PRN PRN LINE FLUSH
[2019-07-01] MEDS: LATANOPROST 0.005% OU SCH (18:03)
[2019-07-01] MEDS ORDERED: ALUM-MAG HYDROX-SIMETH 200-200-20MG/5ML PO ONE (19:42)
[2019-07-01] MEDS: PRAVACHOL PO SCH (21:02)
[2019-07-01] MEDS: LANTUS SUB-Q SCH (22:20)
[2019-07-02] MEDS: DUONEB *Not for PRN Use IH SCH ×4 (02:05→20:47)
[2019-07-02] MEDS: LASIX PO SCH (06:11)
[2019-07-02] MEDS: PERCOCET 5/325 PO PRN (06:12)
[2019-07-02] MEDS: HumaLOG SUB-Q SCH ×4 (06:41→23:28)
--- NOTE | 2019-07-02 07:48 | Progress Note ---
Assessment and Plan Assessment and plan: Acute severe headaches -Likely due to the recent epidural injection -CT head and MRI brain negative for acute findings -Pain controlled on PRN percocets Paroxysmal atrial fibrillation on chronic oral anticoagulation -Heart rate controlled -Continue oral anticoagulation with Eliquis COPD/Asthma -No acute exacerbation -On neb breathing treatments Chronic respiratory failure with hypoxia -Continue oxygen supplementation as needed HTN -Controlled NIDDM2 complicated with retinopathy -Controlled on SSI and Lantus -Continue home ophthalmic agent CAD -Stable. -Cont home meds HLD -Continue statin GERD -Continue Protonix Gout -No acute flare -Continue allopurinol Constipation -On laxatives Morbid obesity with BMI of 40.7 -Lifestyle modification recommended Unsteady gait -PT recommended MICKEY Disposition: PT recommended MICKEY, bottle caser consulted History Interval history: Review of systems Constitutional: No fevers, no malaise, no joint pains CVS: No chest pain, no orthopnea, no dyspnea on exertion, no pedal edema GI: No abdominal pain, no diarrhea, no vomiting, no constipation Respiratory: no wheezing, no coughing Hospitalist Physical - Physical exam Narrative exam: General.: Appears well, no distress, nontoxic HEENT: Moist mucous membranes, extraocular muscles intact, no lymphadenopathy Neck: supple Cardiac: S1-S2 heard Lungs: clear to auscultation bilaterally Abdomen: soft , nontender, nondistended, bowel sounds positive Extremities: no edema clubbing or cyanosis Skin: no rash or lesions Neurologic: no gross focal deficits Psych: calm, and cooperative - Constitutional Vitals: Temp Pulse Resp BP Pulse Ox 98.4 F 149 H 18 135/66 97 07/02/19 01:56 07/02/19 01:56 07/02/19 01:56 07/02/19 01:56 07/02/19 01:56 General appearance: Present: no acute distress, obese Results - Labs CBC & Chem 7: 06/28/19 08:24 07/01/19 05:10 Labs: Laboratory Last Values WBC 9.1 K/mm3 (4.5-11.0) 06/28/19 08:24 RBC 5.16 M/mm3 (3.65-5.03) H 06/28/19 08:24 Hgb 12.5 gm/dl (10.1-14.3) 06/28/19 08:24 Hct 40.7 % (30.3-42.9) 06/28/19 08:24 MCV 79 fl (79-97) 06/28/19 08:24 MCH 24 pg (28-32) L 06/28/19 08:24 MCHC 31 % (30-34) 06/28/19 08:24 RDW 16.9 % (13.2-15.2) H 06/28/19 08:24 Plt Count 216 K/mm3 (140-440) 06/28/19 08:24 Lymph % (Auto) 25.7 % (13.4-35.0) 06/28/19 08:24 [place] % (Auto) 8.2 % (0.0-7.3) H 06/28/19 08:24 Eos % (Auto) 0.1 % (0.0-4.3) 06/28/19 08:24 Baso % (Auto) 0.2 % (0.0-1.8) 06/28/19 08:24 Lymph # 2.3 K/mm3 (1.2-5.4) 06/28/19 08:24 [place] # 0.7 K/mm3 (0.0-0.8) 06/28/19 08:24 Eos # 0.0 K/mm3 (0.0-0.4) 06/28/19 08:24 Baso # 0.0 K/mm3 (0.0-0.1) 06/28/19 08:24 Seg Neutrophils % 65.8 % (40.0-70.0) 06/28/19 08:24 Seg Neutrophils # 6.0 K/mm3 (1.8-7.7) 06/28/19 08:24 PT 15.4 Sec. (12.2-14.9) H 06/28/19 09:25 INR 1.25 (0.87-1.13) H 06/28/19 09:25 APTT 22.4 Sec. (24.2-36.6) L 06/28/19 09:25 17.9 Sec. (15.1-19.6) 06/28/19 09:25 Sodium 136 mmol/L (137-145) L 07/01/19 05:10 Potassium 3.9 mmol/L (3.6-5.0) 07/01/19 05:10 Chloride 96.3 mmol/L (98-107) L 07/01/19 05:10 Carbon Dioxide 31 mmol/L (22-30) H 07/01/19 05:10 13 mmol/L 07/01/19 05:10 BUN 13 mg/dL (7-17) 07/01/19 05:10 0.8 mg/dL (0.7-1.2) 07/01/19 05:10 Estimated GFR > 60 ml/min 07/01/19 05:10 16 % 07/01/19 05:10 Glucose 110 mg/dL (65-100) H 07/01/19 05:10 POC Glucose 129 (70-105) H 07/02/19 06:23 Calcium 8.9 mg/dL (8.4-10.2) 07/01/19 05:10 Magnesium 2.00 mg/dL (1.7-2.3) 06/28/19 08:24 0.30 mg/dL (0.1-1.2) 06/28/19 08:24 0.30 mg/dL (0.1-1.2) 06/28/19 08:24 < 0.2 mg/dL (0-0.2) 06/28/19 08:24 0.1 mg/dL 06/28/19 08:24 AST 13 units/L (5-40) 06/28/19 08:24 AST 13 units/L (5-40) 06/28/19 08:24 ALT 10 units/L (7-56) 06/28/19 08:24 ALT 10 units/L (7-56) 06/28/19 08:24 31 units/L (35-129) L 06/28/19 08:24 31 units/L (35-129) L 06/28/19 08:24 54 units/L (30-135) 06/28/19 08:24 CK-MB (CK-2) 3.3 ng/mL (0.0-4.0) 06/28/19 08:24 CK-MB (CK-2) Rel Index 6.1 (0-4) H 06/28/19 08:24 < 0.010 ng/mL (0.00-0.029) 06/28/19 14:58 7.1 g/dL (6.3-8.2) 06/28/19 08:24 7.2 g/dL (6.3-8.2) 06/28/19 08:24 4.0 g/dL (3.9-5) 06/28/19 08:24 4.1 g/dL (3.9-5) 06/28/19 08:24 1.3 % 06/28/19 08:24 1.4 % 06/28/19 08:24 Yellow (Yellow) 06/28/19 Unknown Clear (Clear) 06/28/19 Unknown 6.0 (5.0-7.0) 06/28/19 Unknown Ur Specific [place] 1.019 (1.003-1.030) 06/28/19 Unknown 30 mg/dl mg/dL (Negative) 06/28/19 Unknown Neg mg/dL (Negative) 06/28/19 Unknown Tr mg/dL (Negative) 06/28/19 Unknown Neg (Negative) 06/28/19 Unknown Neg (Negative) 06/28/19 Unknown Neg (Negative) 06/28/19 Unknown < 2.0 mg/dL (<2.0) 06/28/19 Unknown Ur Leukocyte Esterase Neg (Negative) 06/28/19 Unknown 1.0 /HPF (0.0-6.0) 06/28/19 Unknown 4.0 /HPF (0.0-6.0) 06/28/19 Unknown U Epithel Cells (Auto) < 1.0 /HPF (0-13.0) 06/28/19 Unknown 1+ /HPF (Negative) 06/28/19 Unknown Active Medications - Current Medications Current Medications: Generic Name Dose Route Start Last Admin Trade Name Freq PRN Reason Stop Dose Admin Acetaminophen 650 mg 06/28/19 10:19 07/01/19 21:07 Tylenol PO 650 mg Q4H PRN Administration Pain MILD(1-3)/Fever >100.5/OLIVERA Albuterol/Ipratropium 1 ampul 06/28/19 16:30 07/02/19 02:05 Duoneb *Not For Prn Use* IH Not Given Q6HRT ALFRED Allopurinol 150 mg 06/29/19 10:00 07/01/19 09:35 Zyloprim PO 150 mg QDAY [facility] Administration Apixaban 5 mg 06/28/19 22:00 07/01/19 21:02 Eliquis PO 5 mg Q12HR ALFRED Administration Protocol Dextrose 50 ml 06/28/19 16:22 D50w (25gm) Syringe IV PRN PRN Hypoglycemia Furosemide 20 mg 06/28/19 17:00 07/02/19 06:11 Lasix PO 20 mg DAILY@0600 ALFR[facility] Administration Hydralazine HCl 10 mg 06/28/19 16:20 Apresoline IV Q4HR PRN Blood Pressure Insulin Glargine 10 units 06/28/19 22:00 07/01/19 22:20 Lantus SUB-Q 10 units QHS ALFRED Administration Insulin Human Lispro 0 unit 06/28/19 16:30 07/02/19 06:41 Humalog SUB-Q Not Given ACHS [facility] Protocol Isosorbide Mononitrate 30 mg 06/28/19 17:00 07/01/19 09:35 Imdur PO 30 mg DAILY ALFRED Administration Lactulose 20 gm 06/30/19 22:00 07/01/19 21:19 Cephulac PO 07/05/19 21:59 Not Given BID ALFRED Latanoprost 1 drops 06/28/19 18:00 07/01/19 18:03 Latanoprost 0.005% OU 1 drops QPM [facility] Administration Metoprolol Succinate 25 mg 07/02/19 10:00 Toprol Xl PO QDAY [facility] Nitroglycerin 0.4 mg 06/28/19 16:17 Nitrostat SL Q5M PRN Chest Pain Ondansetron HCl 4 mg 06/28/19 10:19 06/29/19 22:19 Zofran IV 4 mg Q8H PRN Administration Nausea And Vomiting Oxycodone/Acetaminophen 1 tab 06/28/19 10:19 07/02/19 06:12 Percocet 5/325 PO 1 tab Q6H PRN Administration Pain, Moderate (4-6) Pantoprazole Sodium 40 mg 06/29/19 10:00 07/01/19 09:35 Protonix PO 40 mg QDAY ALFRED Administration Polyethylene Glycol 17 gm 06/29/19 16:00 07/01/19 09:34 Miralax 3350 PO 17 gm QDAY ALFRED Administration Pravastatin Sodium 40 mg 06/28/19 22:00 07/01/19 21:02 Pravachol PO 40 mg QHS ALFRED Administration Sodium Chloride 10 ml 06/28/19 22:00 07/01/19 21:02 Sodium Chloride Flush Syringe 10 Ml IV 10 ml BID ALFRED Administration Sodium Chloride 10 ml 06/28/19 10:19 Sodium Chloride Flush Syringe 10 Ml IV 07/08/19 10:18 PRN PRN LINE FLUSH
[2019-07-02] MEDS: CEPHULAC PO SCH ×2 (09:23→21:44)
[2019-07-02] MEDS: IMDUR PO SCH (09:23)
[2019-07-02] MEDS: MIRALAX 3350 PO SCH (09:23)
[2019-07-02] MEDS: ZYLOPRIM PO SCH (09:23)
[2019-07-02] MEDS: ELIQUIS PO SCH ×2 (09:23→21:45)
[2019-07-02] MEDS: PROTONIX PO SCH (09:23)
[2019-07-02] MEDS: TOPROL XL PO SCH (09:23)
[2019-07-02] MEDS: SODIUM CHLORIDE FLUSH SYRINGE 10 ML IV SCH ×2 (09:31→22:35)
[2019-07-02] MEDS: LATANOPROST 0.005% OU SCH (17:44)
[2019-07-02] MEDS: PRAVACHOL PO SCH (21:45)
[2019-07-02] MEDS: LANTUS SUB-Q SCH (23:28)
[2019-07-03] MEDS: DUONEB *Not for PRN Use IH SCH ×3 (02:10→13:50)
[2019-07-03] MEDS: LASIX PO SCH (05:52)
[2019-07-03] MEDS: HumaLOG SUB-Q SCH ×2 (07:12→11:39)
[2019-07-03] MEDS: CEPHULAC PO SCH (09:01)
[2019-07-03] MEDS: IMDUR PO SCH (09:02)
[2019-07-03] MEDS: ELIQUIS PO SCH (09:02)
[2019-07-03] MEDS: MIRALAX 3350 PO SCH (09:02)
[2019-07-03] MEDS: PROTONIX PO SCH (09:02)
[2019-07-03] MEDS: TOPROL XL PO SCH (09:03)
[2019-07-03] MEDS: ZYLOPRIM PO SCH (09:03)
[2019-07-03 09:04] VITALS: BP 119/73
[2019-07-03] MEDS: SODIUM CHLORIDE FLUSH SYRINGE 10 ML IV SCH (09:11)
--- NOTE | 2019-07-03 12:06 | Discharge Summary ---
Providers - Providers Date of Admission: 07/01/19 11:19 Attending physician: KAY LLANES MD 06/28/19 Consult to Physician [CONS] Stat Comment: Consulting Provider: JORGE SPIVEY Physician Instructions: Reason For Exam: oreilly s/p epidural 06/29/19 11:28 Physical Therapy Evaluation and Treat [CONS] Routine Comment: Reason For Exam: Weakness 07/01/19 11:25 Consult to Case Management [CONS] Routine Services Needed at Discharge: Other Notified:: yes Comment:: [employer] [facility] Hospital course: Acute severe headaches -Likely due to the recent epidural injection -CT head and MRI brain negative for acute findings -Pain controlled on PRN percocets Paroxysmal atrial fibrillation on chronic oral anticoagulation -Heart rate controlled -Continue oral anticoagulation with Eliquis COPD/Asthma -No acute exacerbation -On neb breathing treatments Chronic respiratory failure with hypoxia -Continue oxygen supplementation as needed HTN -Controlled NIDDM2 complicated with retinopathy -Controlled on SSI and Lantus -Continue home ophthalmic agent CAD -Stable. -Cont home meds HLD -Continue statin GERD -Continue Protonix Gout -No acute flare -Continue allopurinol Constipation -On laxatives Morbid obesity with BMI of 40.7 -Lifestyle modification recommended Unsteady gait -PT recommended MICKEY Disposition: PT recommended MICKEY, case repairer consulted Disposition: DC/TX-06 HOME [facility] Time spent for discharge: 33 mins Core Measure Documentation - Palliative Care Palliative Care/ Comfort Measures: Not Applicable - Core Measures Any of the following diagnoses?: none Exam - Constitutional Vitals: Temp Pulse Resp BP Pulse Ox 98.2 F 72 20 119/73 97 07/03/19 07:09 07/03/19 10:00 07/03/19 08:19 07/03/19 09:02 07/03/19 10:00 General appearance: Present: no acute distress, well-nourished - EENT Eyes: Present: PERRL ENT: hearing intact, clear oral mucosa - Neck Neck: Present: supple, normal ROM - Respiratory Respiratory effort: normal Respiratory: bilateral: CTA - Cardiovascular Heart Sounds: Present: S1 & S2. Absent: rub, click - Extremities Extremities: pulses symmetrical, No edema Peripheral Pulses: within normal limits - Abdominal General gastrointestinal: Present: soft, non-tender, non-distended, normal bowel sounds Female genitourinary: Present: normal - Integumentary Integumentary: Present: clear, warm, dry - Musculoskeletal Musculoskeletal: gait normal, strength equal bilaterally - Psychiatric Psychiatric: appropriate mood/affect, intact judgment & insight - Neurologic Neurologic: CNII-XII intact, moves all extremities Plan Follow up with: ANGELA WRIGHT MD [Primary Care Provider] - 3-5 Days
== END 2019-07-03 15:00 | disposition home health service (06) | DRG 103 ==
LOC: ED 07:47 → 2B-ACE 10:10 → OBSVTOIN 07-01 11:19
PROVIDERS: ADMIT Internal Medicine; ATTEND Internal Medicine
DX: G97.1 Other reaction to spinal and lumbar puncture (principal); Z68.41 Body mass index [BMI] 40.0-44.9, adult; J96.11 Chronic respiratory failure with hypoxia; E66.01 Morbid (severe) obesity due to excess calories; I48.0 Paroxysmal atrial fibrillation; E78.00 Pure hypercholesterolemia, unspecified; G43.909 Migraine, unspecified, not intractable, without status migrainosus; K21.9 Gastro-esophageal reflux disease without esophagitis; I10 Essential (primary) hypertension; E78.5 Hyperlipidemia, unspecified; M10.9 Gout, unspecified; H40.9 Unspecified glaucoma; K59.00 Constipation, unspecified; R26.9 Unspecified abnormalities of gait and mobility; J44.9 Chronic obstructive pulmonary disease, unspecified; E11.319 Type 2 diabetes mellitus with unspecified diabetic retinopathy without macular edema; Z99.81 Dependence on supplemental oxygen; Z86.73 Personal history of transient ischemic attack (TIA), and cerebral infarction without residual deficits; I25.2 Old myocardial infarction; Z90.710 Acquired absence of both cervix and uterus; Z98.51 Tubal ligation status; Z95.1 Presence of aortocoronary bypass graft; Z87.891 Personal history of nicotine dependence; Z83.3 Family history of diabetes mellitus; Z82.49 Family history of ischemic heart disease and other diseases of the circulatory system; Z88.8 Allergy status to other drugs, medicaments and biological substances; Z88.6 Allergy status to analgesic agent
CPT/HCPCS: 36415; 70450; 70553; 71045; 74176; 80048; 80053; 80076; 81001; 82550; 82553; 82962; 83735; 84484; 85025; 85610; 85670; 85730; 87086; 93005; 93010; 94640; 94760; 96365; 96375; G0378; A9270-GY; A9577; J0360; J1200; J1815; J2270; J2405; J2765; J3475; J7030

== ENCOUNTER 2019-09-20 11:35 | Emergency (ER) | payer MEDICARE ==
--- NOTE | 2019-09-20 11:45 | Emergency Department Report ---
Blank Doc - Documentation Documentation: 78-year-old female that presents with abdominal pain with destination and lower legs swelling. This initial assessment/diagnostic orders/clinical plan/treatment(s) is/are subject to change based on patient's health status, clinical progression and re- assessment by fellow clinical providers in the ED. Further treatment and workup at subsequent clinical providers discretion. Patient/guardians urged not to elope from the ED as their condition may be serious if not clinically assessed and managed. Initial orders include: 1- Patient sent to [facility] for further evaluation and treatment 2- labs 3- UA
--- NOTE | 2019-09-20 13:06 | XRay Report ---
ACUTE ABDOMINAL SERIES 4 VIEWS INDICATION: abd pain. COMPARISON: CT 06/28/2019. FINDINGS: No acute pulmonary or pleural findings on the included chest radiograph. Cardiomegaly is noted. No dilated loops of bowel are seen. No free air is identified. No renal calcifications are seen. IMPRESSION: 1. No acute findings. Signer Name: Jeanmarie Sparks MD Signed: 09/20/2019 1:02 PM Workstation Name: [id number]
[2019-09-20 13:10] LABS: Basophils % (Auto) 0.7 % (0.0-1.8); Eosinophils # (Auto) 0.1 K/mm3 (0.0-0.4); Eosinophils % (Auto) 2.8 % (0.0-4.3); Hematocrit 41.2 % (30.3-42.9); Hemoglobin 13.2 gm/dl (10.1-14.3); Lymphocytes % (Auto) 48.5 % (13.4-35.0); Mean Corpuscular HGB Conc 32 % (30-34); Mean Corpuscular Volume 76 fl (79-97); Monocytes # (Auto) 0.3 K/mm3 (0.0-0.8); Monocytes % (Auto) 8.6 % (0.0-7.3); Platelet Count 180 K/mm3 (140-440); Red Blood Count 5.39 M/mm3 (3.65-5.03); Red Cell Distribution Width 17.5 % (13.2-15.2)
[2019-09-20 13:29] LABS: Alanine Aminotransferase 11 units/L (7-56); Albumin 3.8 g/dL (3.9-5); BUN/Creatinine Ratio 17; Blood Urea Nitrogen 17 mg/dL (7-17); Calcium 9.5 mg/dL (8.4-10.2); Hemolysis Index 12
[2019-09-20 17:52] VITALS: BP 133/76
[2019-09-20] MEDS ORDERED: TYLENOL PO ONE (18:09)
[2019-09-20] MEDS ORDERED: D50W (25GM) Syringe IV ONE (18:09)
[2019-09-20] MEDS ORDERED: D50W (25GM) Syringe IV PRN (18:09)
[2019-09-20] MEDS ORDERED: ROXICODONE PO ONE (18:10)
[2019-09-20] MEDS ORDERED: PEPCID IV ONE (18:13)
--- NOTE | 2019-09-20 18:13 | Emergency Department Report ---
ED General Adult HPI - General Chief complaint: Abdominal Pain Stated complaint: ABD PAIN Time Seen by Provider: 09/20/19 11:42 Source: patient, RN notes reviewed, old records reviewed Mode of arrival: Wheelchair Limitations: Physical Limitation - History of Present Illness Initial comments: Primary care Dr.: Dr. Rico Cardiology: Dr. Cano This is an 78-year-old female. I have evaluated this patient in the past. Past history includes of obesity, atrial fibrillation, on systemic anticoagulation, COPD, chronic respiratory failure, heart disease status post bypass, diabetes , obesity, stroke, chronic pain Today, the patient presents with a primary complaint of abdominal pain. The abdominal pain is in the mid abdomen. It is achy and throbbing. The patient feels like her abdomen is distended and swollen. The pain does not radiate anywhere. It increases with palpation and it decreases with rest. Of note, patient had CAT scan at this facility ordered by myself, which showed a short umbilical hernia containing a short segment of transverse colon, without evidence of obstruction. The patient incidentally endorse that she felt like her hernia was "stuck." The patient endorses secondary complaint of chest pain. She endorses that the chest discomfort is intermittent, and present only when straining to defecate. She endorses compliance with her systemic anticoagulation, and she denies other DVT and pulmonary embolism risk factors. She also reports that she spoke to her primary care doctor about her chest discomfort, and she endorses that it is not her primary complaint. -: Gradual, hour(s), days(s) Location: chest, abdomen Quality: other Consistency: other Improves with: other Worsens with: other Associated Symptoms: other - Related Data Home Medications Medication Instructions Recorded Confirmed Last Taken Pravastatin [Pravachol] 40 mg PO DAILY 06/30/18 06/28/19 06/28/19 Umeclidinium Brm/Vilanterol Tr 1 each IH DAILY 06/30/18 06/28/19 06/28/19 [Anoro Ellipta 62.5-25 Mcg INH] traMADol [Ultram 50 MG tab] 50 mg PO Q6HR PRN 06/30/18 06/28/19 06/27/19 Allopurinol [Zyloprim] 300 mg PO QDAY 07/11/18 06/28/19 12/17/18 10:30 ISOSORBIDE MONOnitrate [Imdur ER] 30 mg PO DAILY 07/11/18 06/28/19 12/17/18 10:30 30 Latanoprost 0.005% 1 drop OU QPM 07/11/18 06/28/19 12/17/18 10:30 Pantoprazole [Protonix TAB] 40 mg PO QDAY 07/11/18 06/28/19 12/17/18 10:30 glipiZIDE [Glipizide] 5 mg PO QAM 07/11/18 06/28/19 12/17/18 10:30 Nitroglycerin [Nitrostat] 0.4 mg SL Q5M PRN 12/18/18 06/28/19 Unknown Furosemide [Lasix TAB] 20 mg PO QDAY 06/28/19 06/28/19 Unknown Metoprolol Xl [Metoprolol 25 mg PO QDAY 06/28/19 06/28/19 Unknown SUCCINATE ER TAB] glipiZIDE [Glucotrol] 5 mg PO QPM PRN 06/28/19 06/28/19 Unknown Previous Rx's Medication Instructions Recorded Last Taken Type Apixaban [Eliquis] 5 mg PO Q12HR #30 tablet 07/13/18 06/28/19 Rx Lisinopril [Zestril TAB] 5 mg PO QDAY #30 tablet 07/13/18 12/17/18 10:30 Rx Allergies Allergy/AdvReac Type Severity Reaction Status Date / Time meperidine [From Demerol] Allergy Itching Verified 06/30/18 16:56 meperidine HCl [From Demerol] Allergy Hives Verified 07/11/18 17:40 mushroom Allergy Rash Verified 12/23/18 16:06 spinach Allergy Itching Verified 06/30/18 16:57 flurbiprofen [From Ansaid] AdvReac Unknown Verified 07/11/18 17:40 Wventer-Atb-Fmh Reductase AdvReac Unknown Verified 07/11/18 17:40 Inhibitor ED Review of Systems ROS: Stated complaint: ABD PAIN Other details as noted in HPI Constitutional: malaise. denies: fever Eyes: denies: eye discharge ENT: congestion Respiratory: shortness of breath (chronic). denies: wheezing Cardiovascular: chest pain (acute on chronic) Gastrointestinal: abdominal pain, constipation Genitourinary: denies: dysuria Musculoskeletal: myalgia Skin: denies: lesions Neurological: weakness Hematological/Lymphatic: denies: easy bleeding ED Past Medical Hx - Past Medical History Hx Hypertension: Yes Hx CVA: Yes (x2) Hx Heart Attack/AMI: Yes Hx Congestive Heart Failure: Yes Hx Diabetes: Yes Hx GERD: Yes Hx Arthritis: Yes Hx Headaches / Migraines: Yes Hx Asthma: Yes Hx COPD: Yes Additional medical history: Headache, high cholesterol - Surgical History Hx Open Heart Surgery: Yes Additional Surgical History: tubal ligation, hysterectomy. - Social History Smoking Status: Unknown if ever smoked Substance Use Type: None - Medications Home Medications: Home Medications Medication Instructions Recorded Confirmed Last Taken Type Pravastatin [Pravachol] 40 mg PO DAILY 06/30/18 06/28/19 06/28/19 History Umeclidinium Brm/Vilanterol Tr 1 each IH DAILY 06/30/18 06/28/19 06/28/19 History [Anoro Ellipta 62.5-25 Mcg INH] traMADol [Ultram 50 MG tab] 50 mg PO Q6HR PRN 06/30/18 06/28/19 06/27/19 History Allopurinol [Zyloprim] 300 mg PO QDAY 07/11/18 06/28/19 12/17/18 10:30 History ISOSORBIDE MONOnitrate [Imdur ER] 30 mg PO DAILY 07/11/18 06/28/19 12/17/18 10:30 History 30 Latanoprost 0.005% 1 drop OU QPM 07/11/18 06/28/19 12/17/18 10:30 History Pantoprazole [Protonix TAB] 40 mg PO QDAY 07/11/18 06/28/19 12/17/18 10:30 History glipiZIDE [Glipizide] 5 mg PO QAM 07/11/18 06/28/19 12/17/18 10:30 History Apixaban [Eliquis] 5 mg PO Q12HR #30 tablet 07/13/18 06/28/19 06/28/19 Rx Lisinopril [Zestril TAB] 5 mg PO QDAY #30 tablet 07/13/18 06/28/19 12/17/18 10:30 Rx Nitroglycerin [Nitrostat] 0.4 mg SL Q5M PRN 12/18/18 06/28/19 Unknown History Furosemide [Lasix TAB] 20 mg PO QDAY 06/28/19 06/28/19 Unknown History Metoprolol Xl [Metoprolol 25 mg PO QDAY 06/28/19 06/28/19 Unknown History SUCCINATE ER TAB] glipiZIDE [Glucotrol] 5 mg PO QPM PRN 06/28/19 06/28/19 Unknown History ED Physical Exam - General Limitations: No Limitations General appearance: alert, in no apparent distress, obese - Head Head exam: Present: atraumatic, normocephalic - Eye Eye exam: Present: normal appearance, EOMI. Absent: nystagmus - ENT ENT exam: Present: normal exam, normal orophraynx, mucous membranes moist, normal external ear exam - Neck Neck exam: Present: normal inspection, full ROM. Absent: tenderness, meningismus - Respiratory Respiratory exam: Present: decreased breath sounds. Absent: respiratory distress, wheezes, rales, rhonchi, stridor - Cardiovascular Cardiovascular Exam: Present: regular rate, normal rhythm, normal heart sounds. Absent: bradycardia, tachycardia, irregular rhythm, systolic murmur, diastolic murmur, rubs, gallop - GI/Abdominal GI/Abdominal exam: Present: soft, tenderness, hernia, other (left-sided supraumbilicalVentral hernia. It is tender and it is difficult to reduce.). Absent: distended, guarding, pulsatile mass - Extremities Exam Extremities exam: Present: normal inspection, full ROM, other (2+ pulses noted in the bilateral upper, lower extremities. There is no long bone tenderness. Musculoskeletal compartments are soft. The pelvis is stable.). Absent: calf tenderness - Back Exam Back exam: Present: normal inspection, full ROM. Absent: tenderness, CVA tenderness (R), CVA tenderness (L), paraspinal tenderness, vertebral tenderness - Neurological Exam Neurological exam: Present: alert, oriented X3, other (there is no facial droop. The tongue is midline. Extraocular movements are intact bilaterally. Patient speaking in full complete sentences. Shoulder shrug is intact bilaterally. Hearing is grossly intact bilaterally. Visual acuity intact to finger counting and color perception at a close distance. 5/5 strength 4 extremities. Sensation intact to light touch in 4 extremities.). Absent: motor sensory deficit - Psychiatric Psychiatric exam: Present: normal affect, normal mood - Skin Skin exam: Present: warm, dry, intact, normal color. Absent: rash ED Course Vital Signs 09/20/19 09/20/19 11:42 17:51 Temperature 98.1 F Pulse Rate 65 56 L Respiratory 18 16 Rate Blood Pressure 132/59 Blood Pressure 133/76 [Left] O2 Sat by Pulse 100 100 Oximetry ED Medical Decision Making - Lab Data Result diagrams: 09/20/19 12:36 09/20/19 12:46 Vital Signs 09/20/19 09/20/19 11:42 17:51 Temperature 98.1 F Pulse Rate 65 56 L Respiratory 18 16 Rate Blood Pressure 132/59 Blood Pressure 133/76 [Left] O2 Sat by Pulse 100 100 Oximetry Lab Results 09/20/19 09/20/19 09/20/19 Range/Units 12:36 12:36 12:46 WBC 4.1 L (4.5-11.0) K/mm3 RBC 5.39 H (3.65-5.03) M/mm3 Hgb 13.2 (10.1-14.3) gm/dl Hct 41.2 (30.3-42.9) % MCV 76 L (79-97) fl MCH 25 L (28-32) pg MCHC 32 (30-34) % RDW 17.5 H (13.2-15.2) % Plt Count 180 (140-440) K/mm3 Lymph % (Auto) 48.5 H (13.4-35.0) % [place] % (Auto) 8.6 H (0.0-7.3) % Eos % (Auto) 2.8 (0.0-4.3) % Baso % (Auto) 0.7 (0.0-1.8) % Lymph # 2.0 (1.2-5.4) K/mm3 [place] # 0.3 (0.0-0.8) K/mm3 Eos # 0.1 (0.0-0.4) K/mm3 Baso # 0.0 (0.0-0.1) K/mm3 Seg Neutrophils % 39.4 L (40.0-70.0) % Seg Neutrophils # 1.6 L (1.8-7.7) K/mm3 PT (12.2-14.9) Sec. INR (0.87-1.13) APTT (24.2-36.6) Sec. Sodium 141 (137-145) mmol/L Potassium 4.5 (3.6-5.0) mmol/L Chloride 100.8 (98-107) mmol/L Carbon Dioxide 28 (22-30) mmol/L Anion Gap 17 mmol/L BUN 17 (7-17) mg/dL Creatinine 1.0 (0.7-1.2) mg/dL Estimated GFR > 60 ml/min BUN/Creatinine Ratio 17 % Glucose 102 H (65-100) mg/dL POC Glucose (70-105) Calcium 9.5 (8.4-10.2) mg/dL Magnesium (1.7-2.3) mg/dL Total Bilirubin 0.30 (0.1-1.2) mg/dL AST 15 (5-40) units/L ALT 11 (7-56) units/L Alkaline Phosphatase 27 L (35-129) units/L Total Creatine Kinase (30-135) units/L Troponin T < 0.010 (0.00-0.029) ng/mL NT-Pro-B Natriuret Pep 565.7 (0-900) pg/mL Total Protein 6.8 (6.3-8.2) g/dL Albumin 3.8 L (3.9-5) g/dL Albumin/Globulin Ratio 1.3 % Lipase 17 (13-60) units/L Urine Bilirubin (Negative) Urine RBC (Auto) (0.0-6.0) /HPF U Epithel Cells (Auto) (0-13.0) /HPF 09/20/19 09/20/19 09/20/19 Range/Units 14:15 18:00 18:15 WBC (4.5-11.0) K/mm3 RBC (3.65-5.03) M/mm3 Hgb (10.1-14.3) gm/dl Hct (30.3-42.9) % MCV (79-97) fl MCH (28-32) pg MCHC (30-34) % RDW (13.2-15.2) % Plt Count (140-440) K/mm3 Lymph % (Auto) (13.4-35.0) % [place] % (Auto) (0.0-7.3) % Eos % (Auto) (0.0-4.3) % Baso % (Auto) (0.0-1.8) % Lymph # (1.2-5.4) K/mm3 [place] # (0.0-0.8) K/mm3 Eos # (0.0-0.4) K/mm3 Baso # (0.0-0.1) K/mm3 Seg Neutrophils % (40.0-70.0) % Seg Neutrophils # (1.8-7.7) K/mm3 PT (12.2-14.9) Sec. INR (0.87-1.13) APTT (24.2-36.6) Sec. Sodium (137-145) mmol/L Potassium (3.6-5.0) mmol/L Chloride (98-107) mmol/L Carbon Dioxide (22-30) mmol/L Anion Gap mmol/L BUN (7-17) mg/dL Creatinine (0.7-1.2) mg/dL Estimated GFR ml/min BUN/Creatinine Ratio % Glucose (65-100) mg/dL POC Glucose 93 74 (70-105) Calcium (8.4-10.2) mg/dL Magnesium (1.7-2.3) mg/dL Total Bilirubin (0.1-1.2) mg/dL AST (5-40) units/L ALT (7-56) units/L Alkaline Phosphatase (35-129) units/L Total Creatine Kinase (30-135) units/L Troponin T (0.00-0.029) ng/mL NT-Pro-B Natriuret Pep (0-900) pg/mL Total Protein (6.3-8.2) g/dL Albumin (3.9-5) g/dL Albumin/Globulin Ratio % Lipase (13-60) units/L Urine Bilirubin Neg (Negative) Urine RBC (Auto) 2.0 (0.0-6.0) /HPF U Epithel Cells (Auto) 2.0 (0-13.0) /HPF 09/20/19 09/20/19 Range/Units 18:28 18:28 WBC (4.5-11.0) K/mm3 RBC (3.65-5.03) M/mm3 Hgb (10.1-14.3) gm/dl Hct (30.3-42.9) % MCV (79-97) fl MCH (28-32) pg MCHC (30-34) % RDW (13.2-15.2) % Plt Count (140-440) K/mm3 Lymph % (Auto) (13.4-35.0) % [place] % (Auto) (0.0-7.3) % Eos % (Auto) (0.0-4.3) % Baso % (Auto) (0.0-1.8) % Lymph # (1.2-5.4) K/mm3 [place] # (0.0-0.8) K/mm3 Eos # (0.0-0.4) K/mm3 Baso # (0.0-0.1) K/mm3 Seg Neutrophils % (40.0-70.0) % Seg Neutrophils # (1.8-7.7) K/mm3 PT 13.8 (12.2-14.9) Sec. INR 1.07 (0.87-1.13) APTT 30.8 (24.2-36.6) Sec. Sodium (137-145) mmol/L Potassium (3.6-5.0) mmol/L Chloride (98-107) mmol/L Carbon Dioxide (22-30) mmol/L Anion Gap mmol/L BUN (7-17) mg/dL Creatinine (0.7-1.2) mg/dL Estimated GFR ml/min BUN/Creatinine Ratio % Glucose (65-100) mg/dL POC Glucose (70-105) Calcium (8.4-10.2) mg/dL Magnesium 2.10 (1.7-2.3) mg/dL Total Bilirubin (0.1-1.2) mg/dL AST (5-40) units/L ALT (7-56) units/L Alkaline Phosphatase (35-129) units/L Total Creatine Kinase 63 (30-135) units/L Troponin T < 0.010 (0.00-0.029) ng/mL NT-Pro-B Natriuret Pep (0-900) pg/mL Total Protein (6.3-8.2) g/dL Albumin (3.9-5) g/dL Albumin/Globulin Ratio % Lipase (13-60) units/L Urine Bilirubin (Negative) Urine RBC (Auto) (0.0-6.0) /HPF U Epithel Cells (Auto) (0-13.0) /HPF - EKG Data -: EKG Interpreted by Ut EKG shows normal: sinus rhythm Rate: normal - EKG Data 09/20/19 20:06 The EKG shows a sinus bradycardia, 57 bpm, normal axis, QTC is 410 ms, there are T-wave inversions in the anteroseptal leads, there is left ventricular hypertrophy, EKG is abnormal, the EKG is not consistent with ST elevation myocardial infarction. 09/20/19 20:07 The EKG is unchanged from prior EKG from May 2019. - Radiology Data Radiology results: report reviewed, image reviewed [facility] [address] [place] [address] XRay Report Signed Patient: CARMENZA SEVERINO MR#: [id number] : 1940 Acct:[id number] Age/Sex: 78 / F ADM Date: 09/20/19 Loc: ED Attending Dr: Ordering Physician: LINUS PETERSON NP Date of Service: 09/20/19 Procedure(s): XR abd series w cxr 1V Accession Number(s): [id number] cc: LINUS PETERSON NP Fluoro Time In Minutes: ACUTE ABDOMINAL SERIES 4 VIEWS INDICATION: abd pain. COMPARISON: CT 06/28/2019. FINDINGS: No acute pulmonary or pleural findings on the included chest radiograph. Cardiomegaly is noted. No dilated loops of bowel are seen. No free air is identified. No renal calcifications are seen. IMPRESSION: 1. No acute findings. Signer Name: Jeanmarie Sparks MD Signed: 09/20/2019 1:02 PM Workstation Name: [id number] Transcribed By: SUMIT Dictated By: Jeanmarie Sparks MD Electronically Authenticated By: Jeanmarie Sparks MD Signed Date/Time: 09/20/19 1302 - Medical Decision Making Differential diagnosis, including not limited to: Hernia, colitis, obstruction, urinary tract infection, AAA, retroperitoneal hematoma, GERD, gastritis, hiatal hernia, pneumonia, acute coronary syndrome Assessment and plan: 78-year-old female who is alert and oriented, sober, and exhibits decision-making capacity, presenting with a primary complaint of abdominal pain, secondary complaint of chest pain. The patient initially stated that she wanted to leave. I recommended that she completed her evaluation in the emergency room, and we recommended screening laboratory studies, EKG, CT scan of the abdomen pelvis. The patient exhibits decision-making capacity, and is sober, and was able to understand in her own words that not completing the a forementioned evaluation may result disability, paralysis, loss of quality of life. During the course of her ER stay, she left without telling myself or any other ER staff. Nursing team had call the patient left a voicemail with instructions to come back. However, the patient has not come back at this time. Therefore, discharge AGAINST MEDICAL ADVICE. Critical care attestation.: If time is entered above; I have spent that time in minutes in the direct care of this critically ill patient, excluding procedure time. ED Disposition Clinical Impression: Chest pain, Abdominal pain Disposition: DC-07 LEFT AGAINST MED ADVICE Is pt being admited?: No Does the pt Need Aspirin: No Condition: Undetermined Instructions: Abdominal Pain (ED), Chest Pain (ED) Referrals: DAVID MALONE JR, MD [Primary Care Provider] - 3-5 Days
[2019-09-20 18:56] LABS: INR 1.07 (0.87-1.13)
[2019-09-20 18:57] LABS: Partial Thromboplastin Time 30.8 Sec. (24.2-36.6)
[2019-09-20 19:24] LABS: Bilirubin,Urine NEG (Negative); Blood,Urine NEG (Negative); Color,Urine Yellow (Yellow); Mucus,Urine FEW /HPF; Protein,Urine <15 mg/dL mg/dL (Negative); Urobilinogen,Urine < 2.0 mg/dL (<2.0)
== END 2019-09-20 19:20 | disposition left against medical advice (07) ==
LOC: ED 11:35
DX: R07.89 Other chest pain (principal); R10.9 Unspecified abdominal pain; I11.0 Hypertensive heart disease with heart failure; I50.9 Heart failure, unspecified; I25.2 Old myocardial infarction; E11.9 Type 2 diabetes mellitus without complications; K21.9 Gastro-esophageal reflux disease without esophagitis; M19.90 Unspecified osteoarthritis, unspecified site; G43.909 Migraine, unspecified, not intractable, without status migrainosus; J44.9 Chronic obstructive pulmonary disease, unspecified; E78.00 Pure hypercholesterolemia, unspecified; Z98.51 Tubal ligation status; Z90.710 Acquired absence of both cervix and uterus; Z79.899 Other long term (current) drug therapy; Z88.8 Allergy status to other drugs, medicaments and biological substances; Z91.018 Allergy to other foods
CPT/HCPCS: 36415; 74022; 80053; 81001; 82550; 82962; 83690; 83735; 83880; 84484; 85025; 85610; 85730; 93005; 93010

== ENCOUNTER 2021-03-05 13:19 | Emergency (ER) | payer MEDICARE ==
--- NOTE | 2021-03-05 14:04 | Emergency Department Report ---
ED Chest Pain HPI - General Chief Complaint: Chest Pain Stated Complaint: CHEST PAIN Time Seen by Provider: 03/05/21 13:42 Source: EMS Mode of arrival: Stretcher Limitations: No Limitations - History of Present Illness Initial Comments: This is a 1-year-old female with a history of COPD (home O2 dependent), coronary artery disease status post coronary artery bypass graft and subsequent cath showing patent vessels in 2012. 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 She states that Dr. Kaur sent her here because her heart was "beating funny". She did complain of chest pain which appeared to be rather atypical. It was in the subxiphoid all area and intermittent lasting seconds associated with tenderness to the touch. It was otherwise nonpleuritic and nonradiating. Patient denied reflux symptoms although I believe she has had that in the past as well. She is not complaining of any prolonged chest pain. She appears to be having some episodic coughing which she states just began as well as these very brief perhaps a few seconds duration chest pain associated with soreness as above described. Her quality assurance monitor final does show quite a few PVCs/wandering atrial pacemaker. I did not see any episodes of atrial fibrillation. She has occasional PVCs. Cardiology Consult 07/13/18: Patient is a 77-year-old woman who presented with acute onset palpitations and chest pressure, in the emergency room was found with rapid atrial fibrillation, spontaneously resolved. Following resolution of the A. fib, the patient felt better, has not had recurrent symptoms since she returned to a stable sinus rhythm. ECG in sinus rhythm reveals left ventricular hypertrophy and diffuse repolarization abnormalities of LVH. Laboratory exam shows a total CPK that was minimal at 102, but mild isolated rising troponin of 0.26. The patient has an extensive coronary artery disease history. She underwent three-vessel coronary artery bypass in 2007, followed by cardiac catheterizations in 2010 and again in 2012 that revealed all 3 bypass grafts to be patent. Serial LV function assessment to have revealed normal left v entricular systolic function with ejection fraction 55-60%. Her last ischemic assessment was a year and a half ago, and negative Persantine thallium stress test. Recommendations: Current presentation and symptomatology consistent with acute onset rapid atrial fibrillation. Her values show normal electrolyte levels, but a thyroid profile is pending and will be ordered for optimal assessment. Beta abdirashid therapy with continued, and we'll consider addition of amiodarone for atrial fibrillation suppression. Oral anticoagulation will be initiated with Eliquis, and this will be combined with oral anti-platelet mono therapy for her coronary artery disease. Complaint: chest pain -: Sudden Onset: during rest Pain Location: other (Subxiphoid) Pain Radiation: none Severity: moderate Quality: sharp Consistency: intermittent, now resolved Improves With: nothing Worsens With: nothing re: denies: nausea, vomting, diaphoresis, dyspnea, sense of impending doom - Related Data Home Medications Medication Instructions Recorded Confirmed Last Taken Pravastatin [Pravachol] 40 mg PO DAILY 06/30/18 06/28/19 06/28/19 Umeclidinium Brm/Vilanterol Tr 1 each IH DAILY 06/30/18 06/28/19 06/28/19 [Anoro Ellipta 62.5-25 Mcg INH] traMADoL [Ultram 50 MG tab] 50 mg PO Q6HR PRN 06/30/18 06/28/19 06/27/19 ISOSORBIDE MONOnitrate [Imdur ER] 30 mg PO DAILY 07/11/18 06/28/19 12/17/18 10:30 30 Latanoprost 0.005% 1 drop OU QPM 07/11/18 06/28/19 12/17/18 10:30 Pantoprazole [Protonix TAB] 40 mg PO QDAY 07/11/18 06/28/19 12/17/18 10:30 allopurinoL [Zyloprim] 300 mg PO QDAY 07/11/18 06/28/19 12/17/18 10:30 glipiZIDE [Glipizide] 5 mg PO QAM 07/11/18 06/28/19 12/17/18 10:30 Nitroglycerin [Nitrostat] 0.4 mg SL Q5M PRN 12/18/18 06/28/19 Unknown Furosemide [Lasix TAB] 20 mg PO QDAY 06/28/19 06/28/19 Unknown Metoprolol Xl [Metoprolol 25 mg PO QDAY 06/28/19 06/28/19 Unknown SUCCINATE ER TAB] glipiZIDE [Glucotrol] 5 mg PO QPM PRN 06/28/19 06/28/19 Unknown Previous Rx's Medication Instructions Recorded Last Taken Type Apixaban [Eliquis] 5 mg PO Q12HR #30 tablet 07/13/18 06/28/19 Rx lisinopriL [Zestril TAB] 5 mg PO QDAY #30 tablet 07/13/18 12/17/18 10:30 Rx Allergies Allergy/AdvReac Type Severity Reaction Status Date / Time meperidine [From Demerol] Allergy Itching Verified 06/30/18 16:56 meperidine HCl [From Demerol] Allergy Hives Verified 07/11/18 17:40 mushroom Allergy Rash Verified 12/23/18 16:06 spinach Allergy Itching Verified 06/30/18 16:57 flurbiprofen [From Ansaid] AdvReac Unknown Verified 07/11/18 17:40 Xxorcsp-Qup-Mmk Reductase AdvReac Unknown Verified 07/11/18 17:40 Inhibitor Heart Score - HEART Score History: Slightly suspicious EKG: Non-specific Age: < 45 Risk factors: > 3 risk factors or hx of atherosclerotic disease Troponin: < normal limit HEART Score: 3 - EKG Read Time Time EKG Completed: 13:52 EKG Read Time: 13:55 - Critical Actions Critical Actions: 0-3 pts:0.9-1.7%risk of adverse cardiac event.Candidate for discharge ED Review of Systems ROS: Stated complaint: CHEST PAIN Other details as noted in HPI Constitutional: denies: chills, fever Eyes: denies: eye pain, eye discharge, vision change ENT: denies: ear pain, throat pain Respiratory: see HPI, cough. denies: shortness of breath, wheezing Cardiovascular: chest pain. denies: palpitations Endocrine: no symptoms reported Gastrointestinal: other (States has a hernia). denies: abdominal pain, nausea, diarrhea Genitourinary: denies: urgency, dysuria, discharge Musculoskeletal: denies: back pain, joint swelling, arthralgia Skin: denies: rash, lesions Neurological: denies: headache, weakness, paresthesias Psychiatric: denies: anxiety, depression Hematological/Lymphatic: denies: easy bleeding, easy bruising ED Past Medical Hx - Past Medical History Hx Hypertension: Yes Hx CVA: Yes (x2) Hx Heart Attack/AMI: Yes Hx Congestive Heart Failure: Yes Hx Diabetes: Yes Hx GERD: Yes Hx Arthritis: Yes Hx Headaches / Migraines: Yes Hx Asthma: Yes Hx COPD: Yes Additional medical history: Headache, high cholesterol - Surgical History Hx Open Heart Surgery: Yes Additional Surgical History: tubal ligation, hysterectomy. - Social History Smoking Status: Unknown if ever smoked Substance Use Type: None - Medications Home Medications: Home Medications Medication Instructions Recorded Confirmed Last Taken Type Pravastatin [Pravachol] 40 mg PO DAILY 06/30/18 06/28/19 06/28/19 History Umeclidinium Brm/Vilanterol Tr 1 each IH DAILY 06/30/18 06/28/19 06/28/19 History [Anoro Ellipta 62.5-25 Mcg INH] traMADoL [Ultram 50 MG tab] 50 mg PO Q6HR PRN 06/30/18 06/28/19 06/27/19 History ISOSORBIDE MONOnitrate [Imdur ER] 30 mg PO DAILY 07/11/18 06/28/19 12/17/18 10:30 History 30 Latanoprost 0.005% 1 drop OU QPM 07/11/18 06/28/19 12/17/18 10:30 History Pantoprazole [Protonix TAB] 40 mg PO QDAY 07/11/18 06/28/19 12/17/18 10:30 History allopurinoL [Zyloprim] 300 mg PO QDAY 07/11/18 06/28/19 12/17/18 10:30 History glipiZIDE [Glipizide] 5 mg PO QAM 07/11/18 06/28/19 12/17/18 10:30 History Apixaban [Eliquis] 5 mg PO Q12HR #30 tablet 07/13/18 06/28/19 06/28/19 Rx lisinopriL [Zestril TAB] 5 mg PO QDAY #30 tablet 07/13/18 06/28/19 12/17/18 10:30 Rx Nitroglycerin [Nitrostat] 0.4 mg SL Q5M PRN 12/18/18 06/28/19 Unknown History Furosemide [Lasix TAB] 20 mg PO QDAY 06/28/19 06/28/19 Unknown History Metoprolol Xl [Metoprolol 25 mg PO QDAY 06/28/19 06/28/19 Unknown History SUCCINATE ER TAB] glipiZIDE [Glucotrol] 5 mg PO QPM PRN 06/28/19 06/28/19 Unknown History ED Physical Exam - General Limitations: Physical Limitation General appearance: alert, in no apparent distress, obese - Head Head exam: Present: atraumatic, normocephalic - Eye Eye exam: Present: normal appearance. Absent: scleral icterus - ENT ENT exam: Present: mucous membranes moist - Neck Neck exam: Present: normal inspection. Absent: tenderness, meningismus - Respiratory Respiratory exam: Present: normal lung sounds bilaterally. Absent: respiratory distress - Cardiovascular Cardiovascular Exam: Present: regular rate, normal rhythm. Absent: systolic murmur, diastolic murmur, rubs, gallop - GI/Abdominal GI/Abdominal exam: Present: soft, normal bowel sounds, other (Umbilical/ventral hernia noted). Absent: distended, tenderness, guarding, rebound, rigid - Extremities Exam Extremities exam: Present: normal inspection. Absent: pedal edema, joint swelling, calf tenderness - Back Exam Back exam: Present: normal inspection - Neurological Exam Neurological exam: Present: alert, oriented X3, other (No acute focal deficit) - Psychiatric Psychiatric exam: Present: normal affect, normal mood - Skin Skin exam: Present: warm, dry, intact, normal color. Absent: rash ED Course Vital Signs 03/05/21 03/05/21 13:26 13:30 Pulse Rate 66 67 Respiratory 14 21 Rate Blood Pressure 115/47 O2 Sat by Pulse 100 100 Oximetry AJAY score - Ajay Score Age > 65: (1) Yes Aspirin use within the Past 7 Days: (1) Yes 3 or more CAD Risk Factors: (1) Yes 2 or more Angina events in past 24 hrs: (0) No Known CAD with more than 50% Stenosis: (1) Yes Elevated Cardiac Markers: (1) Yes ST Deviation Greater than 0.5mm: (1) Yes AJAY Score: 6 ED Medical Decision Making - Lab Data Result diagrams: 03/05/21 14:49 03/05/21 14:49 Laboratory Results - last 24 hr 03/05/21 03/05/21 14:49 14:49 WBC 5.1 RBC 5.01 Hgb 12.3 Hct 39.0 MCV 78 L MCH 25 L MCHC 32 RDW 17.2 H Plt Count 198 Lymph % (Auto) 42.2 H [place] % (Auto) 9.2 H Eos % (Auto) 3.4 Baso % (Auto) 0.6 Lymph # (Auto) 2.1 [place] # (Auto) 0.5 Eos # (Auto) 0.2 Baso # (Auto) 0.0 Seg Neutrophils % 44.6 Seg Neutrophils # 2.3 PT 14.0 INR 1.10 APTT 28.6 Laboratory Results - last 24 hr 03/05/21 03/05/21 03/05/21 14:49 14:49 14:49 WBC 5.1 RBC 5.01 Hgb 12.3 Hct 39.0 MCV 78 L MCH 25 L MCHC 32 RDW 17.2 H Plt Count 198 Lymph % (Auto) 42.2 H [place] % (Auto) 9.2 H Eos % (Auto) 3.4 Baso % (Auto) 0.6 Lymph # (Auto) 2.1 [place] # (Auto) 0.5 Eos # (Auto) 0.2 Baso # (Auto) 0.0 Seg Neutrophils % 44.6 Seg Neutrophils # 2.3 PT 14.0 INR 1.10 APTT 28.6 Sodium 137 Potassium 4.0 Chloride 100.7 Carbon Dioxide 29 Anion Gap 11 BUN 10 Creatinine 0.7 Estimated GFR > 60 BUN/Creatinine Ratio 14 Glucose 82 Calcium 9.6 Total Bilirubin 0.40 Direct Bilirubin < 0.2 Indirect Bilirubin 0.2 AST 18 ALT 15 Alkaline Phosphatase 27 L Troponin T < 0.010 NT-Pro-B Natriuret Pep 757.9 Total Protein 6.5 Albumin 3.7 L Albumin/Globulin Ratio 1.3 - EKG Data -: EKG Interpreted by [place] EKG shows normal: sinus rhythm Rate: normal - EKG Data Interpretation: nonspecific ST-T wave jeff, LVH LVH type pattern with ST depression V3 through V6. 03/05/21 15:27 - Radiology Data Radiology results: report reviewed (No acute findings per radiologist) Critical care attestation.: If time is entered above; I have spent that time in minutes in the direct care of this critically ill patient, excluding procedure time. ED Disposition Clinical Impression: Atypical chest pain, Wandering atrial pacemaker, Chest wall pain Disposition: TO HOME OR SELFCARE Is pt being admited?: No Does the pt Need Aspirin: No Condition: Stable Instructions: Nonspecific Chest Pain, Adult, Nonspecific Chest Pain, Adult, [id number], Chest Wall Pain, [id number] Additional Instructions: Return to the emergency department any acute change or problem. Follow-up with your affiliate marketing manager. Referrals: [facility] [Other] - 3-5 Days Time of Disposition: 15:40
--- NOTE | 2021-03-05 14:38 | XRay Report ---
CHEST 1 VIEW 03/05/2021 2:07 PM INDICATION / CLINICAL INFORMATION: Chest Pain. COMPARISON: 09/20/2019 FINDINGS: SUPPORT DEVICES: None. HEART / MEDIASTINUM: Heart is mildly enlarged with tortuosity of the thoracic aorta LUNGS / PLEURA: No significant pulmonary or pleural abnormality. No pneumothorax. ADDITIONAL FINDINGS: No significant additional findings. IMPRESSION: 1. No acute findings. Signer Name: Sundar Reyes MD Signed: 03/05/2021 2:33 PM Workstation Name: [id number]
[2021-03-05 15:08] LABS: Basophils % (Auto) 0.6 % (0.0-1.8); Eosinophils # (Auto) 0.2 K/mm3 (0.0-0.4); Eosinophils % (Auto) 3.4 % (0.0-4.3); Hemoglobin 12.3 gm/dl (10.1-14.3); Lymphocytes # (Auto) 2.1 K/mm3 (1.2-5.4); Lymphocytes % (Auto) 42.2 % (13.4-35.0); Mean Corpuscular HGB Conc 32 % (30-34); Mean Corpuscular Volume 78 fl (79-97); Monocytes # (Auto) 0.5 K/mm3 (0.0-0.8); Monocytes % (Auto) 9.2 % (0.0-7.3); Platelet Count 198 K/mm3 (140-440); Red Blood Count 5.01 M/mm3 (3.65-5.03); Red Cell Distribution Width 17.2 % (13.2-15.2)
[2021-03-05 15:19] LABS: INR 1.1 (0.87-1.13); Partial Thromboplastin Time 28.6 Sec. (24.2-36.6)
[2021-03-05 15:31] LABS: Alanine Aminotransferase 15 units/L (7-56); Albumin 3.7 g/dL (3.9-5); Blood Urea Nitrogen 10 mg/dL (7-17); Calcium 9.6 mg/dL (8.4-10.2); Hemolysis Index 5
[2021-03-05 15:32] LABS: BUN/Creatinine Ratio 14; Bilirubin,Direct < 0.2 mg/dL (0-0.2)
[2021-03-05 17:20] VITALS: BP 131/63
--- NOTE | 2021-03-07 11:18 | Electrocardiograph Report ---
[facility] Test Date: 2021-03-05 Test Time: 13:52:19 Pat Name: CARMENZA SEVERINO Department: Room: Gender: F Home Stager: ROMAN : 1940 Requested By: MONICA AGUILAR Order Number: [id number] Reading MD: Stanford Henry Measurements Intervals [place] Rate: 68 P: 42 NV: 157 QRS: 14 QRSD: 80 T: 145 QT: 460 QTc: 476 Interpretive Statements Sinus rhythm Atrial premature complexes Probable left atrial enlargement Probable LVH with secondary repol abnrm No previous ECG available for comparison Electronically Signed On 03-07-2021 11:18:32 EDT by Stanford Henry
== END 2021-03-05 16:50 | disposition home or self-care (01) ==
LOC: ED 13:19
DX: R07.89 Other chest pain (principal); I49.1 Atrial premature depolarization; I11.0 Hypertensive heart disease with heart failure; I50.9 Heart failure, unspecified; K21.9 Gastro-esophageal reflux disease without esophagitis; G43.909 Migraine, unspecified, not intractable, without status migrainosus; G40.909 Epilepsy, unspecified, not intractable, without status epilepticus; J44.9 Chronic obstructive pulmonary disease, unspecified; Z86.73 Personal history of transient ischemic attack (TIA), and cerebral infarction without residual deficits; Z79.899 Other long term (current) drug therapy; Z98.890 Other specified postprocedural states; Z79.4 Long term (current) use of insulin; Z88.6 Allergy status to analgesic agent; Z88.8 Allergy status to other drugs, medicaments and biological substances
CPT/HCPCS: 36415; 71045; 80048; 80076; 82962; 83880; 84484; 85025; 85610; 85730; 93005

== ENCOUNTER 2022-02-13 11:04 | Outpatient (CLI) | payer MEDICARE | END 2022-02-13 11:05 | disposition home or self-care (01) | LOC: MAMMO 11:04 | PROVIDERS: ATTEND Internal Medicine | DX: Z12.31 Encounter for screening mammogram for malignant neoplasm of breast (principal) | CPT/HCPCS: 77067 ==